=== PATIENT | female | born 1945 | race Caucasian/White ===

== ENCOUNTER 2019-01-09 09:14 | Emergency (ER) | payer MEDICARE, OTHER, SELFPAY ==
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
[2019-01-09 09:28] VITALS: BP 132/82; PULSE 68; RESP 20; TEMP 36.1; O2SAT 100
[2019-01-09 10:15] LABS: Basophils Percent Auto 0.7 % (0.2-1.2); Eosinophils Absolute Auto 0.1 K/mm3 (0-0.3); Eosinophils Percent Auto 2.1 % (0-4.4); Hematocrit 40.6 % (37.0-47.0); Immature Granulocyte Absolute 0.03 K/mm3 (0.00-0.031); Immature Granulocyte Percent A 0.5 % (0-0.5); Lymphocytes Absolute Auto 1.45 K/mm3 (0.9-3.2); Lymphocytes Percent Auto 23.8 % (18.3-44.2); Mean Corpuscular Hemoglobin 32.3 pg (26-34); Mean Corpuscular Volume 100.7 fl (80-100); Mean Platelet Volume 9.6 fl (7.4-10.4); Monocytes Absolute Auto 0.6 K/mm3 (0.1-0.6); Monocytes Percent Auto 10.2 % (2.6-8.5); Neutrophils Absolute Auto 3.8 K/mm3 (1.3-6.7); Neutrophils Percent Auto 62.7 % (45.5-73.1); Platelet Count Result 292 k/mm3 (150-375); Red Blood Count 4.03 M/mm3 (4.2-5.4); Red Cell Distribution Width 12.2 % (11.5-14.5); White Blood Count 6.1 K/mm3 (4.5-10.0)
[2019-01-09 10:28] LABS: Alanine Aminotransferase 21 U/L (4-35); Albumin Level 3.8 g/dL (3.5-5.1); Alkaline Phosphatase 96 U/L (38-126); Aspartate Amino Transferase 35 U/L (14-36); Bilirubin,Total 0.8 mg/dL (0.2-1.3); Blood Urea Nitrogen 16 mg/dL (7-17); Calcium 8.6 mg/dL (8.4-10.2); Carbon Dioxide 29 mmol/L (22-30); Chloride 105 mmol/L (98-107); Estimated CRCL calculation 53 ml/min; Estimated Glomerular Filt Rate > 60; Glucose 93 mg/dL (65-105); Potassium 4.1 mmol/L (3.4-5.0); Sodium 141 mmol/L (137-145)
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
[2019-01-09 11:38] LABS: Add Urine Microscopic? NO; Appearance Urine Clear (Clear); Bilirubin Urine Negative (Negative); Blood Urine Negative (Negative); Color Urine Yellow (Yellow); Glucose Urine UA Negative (Negative); Ketones Urine Negative (Negative); Leukocyte Esterase Ur Negative LEU/UL (Negative); Nitrate Urine Negative (Negative); Protein Urine Negative (Negative); Specific Grav Ur 1.011 (1.001-1.035); Urobilinogen Urine Negative mg/dL (<2.0)
[2019-01-09 12:15] VITALS: BP 145/81; PULSE 82; RESP 16; O2SAT 96
== END 2019-01-09 12:15 | disposition home or self-care (01) ==
PROVIDERS: Physician Assistant; Emergency Provider Emergency Medicine; PCP Family Medicine
DX: S30.1XXA Contusion of abdominal wall, initial encounter (principal); V43.52XA Car driver injured in collision with other type car in traffic accident, initial encounter
CPT/HCPCS: 36415; 51701; 74176; 80053; 81003; 85025; 99284

== ENCOUNTER → 2020-03-31 01:26 | Outpatient (CLI) | payer MEDICARE, OTHER, SELFPAY ==
[2020-03-31 19:35] LABS: SARS-CoV-2 RNA PCR Negative
== END ==
PROVIDERS: Family Provider Family Medicine; PCP Family Medicine; Visit Provider Plastic Surgery
DX: Z01.812 Encounter for preprocedural laboratory examination (principal); Z20.822 Contact with and (suspected) exposure to COVID-19
CPT/HCPCS: C9803; U0003; U0005

== ENCOUNTER 2020-04-03 00:32 | Day surgery (SDC) | payer MEDICARE, OTHER, SELFPAY ==
[2020-03-26 14:40] VITALS: BMI 22.1
[2020-04-03] VITALS (9 sets, daily range): BP systolic 94–126; BP diastolic 45–84; PULSE 60–80; RESP 16–20; TEMP 37.2; O2SAT 95–99
--- NOTE | 2020-04-03 07:13 | WPDHPUPDATE1 ---
History and Physical Update Update Date/Time: 04/03/20 07:13 History and Physical has been reviewed, including an updated exam of the patient. There are NO changes in the patient's condition. Risks, benefits, and alternatives have been discussed and questions answered. Patient agrees to proceed with procedure.
--- NOTE | 2020-04-03 12:48 | SUR.PREOP ---
1225-DR. MOREIRA IN TO SPEAK WITH PT AND DAUGHTER, WILL PROCEED WITH SURGERY, PT MARKED. SPLINT/WRAP TO RIGHT LOWER LEG/HEEL.
[2020-04-03] MEDS: LIDO 1%/EPINEPHRINE 1:100,000 50 ML VIAL INFILTRATE (13:24)
[2020-04-03] MEDS: BACITRACIN OINTMENT 15 GM TUBE 1 APPLIC TOPICAL (13:25)
--- NOTE | 2020-04-03 14:27 | PM.OP ---
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
--- NOTE | 2020-04-03 14:30 | P.OP_ITS ---
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 This patient had earlier been in the em ergency room having fallen at home. She had taken a fall at home and has sustained an nondisplaced fracture of the calcaneus and a single rib fracture, but was doing quite well when I examined her in the emergency room prior to her discharge there. She elected to go ahead with her surgery today. She is with her daughter. The patient was taken to the operating room and placed supine on the operating table. Her procedures being done under local anesthetic. She was quite comfortable throughout. The right leg and thigh were prepped and draped in the usual fashion. The lesion was marked for excision and locally infiltrated with 1% lidocaine with epinephrine. Asite of similar diameter was marked on her right thigh and also infiltrated with 1% lidocaine with epi epinephrine. The excision was carried out into the subcutaneous tissue and the specimen was sent for permanent sections. The full-thickness graft was harvested from the right thigh and carefully defatted. It was inset with a running 5 0 nylon. There were a few pie crusting incisions made in it for drainage. The graft was dressed with Mepilex Silver gauze and an Keon wrap. Her posterior ankle support from the ER was reapplied. The donor site was debrided of excess tissue and undermined a cm in all directions. This wound was closed with intradermal 0 Vicryl suture and glue. She was discharged from the operating room in stable condition. A prescription for hydrocodone had already been called in for her from the ER. A prescription for Bactrim DS was cold and for the purpose of preserving the skin graft. Anesthesia: local Surgeon: Matti Cam MD Estimated blood loss (mL): 1 Drains: No Packing: No Pathology: yes (for permanent sections.) Complications: No immediate complications Condition: stable Disposition: same day
== END 2020-04-03 15:20 | disposition home or self-care (01) ==
PROVIDERS: Family Provider Family Medicine; PCP Family Medicine; Visit Provider Plastic Surgery
PROC: (CPT 11403; principal; 2020-04-03 13:00)
DX: L57.0 Actinic keratosis (principal); Z79.82 Long term (current) use of aspirin; Z95.0 Presence of cardiac pacemaker
CPT/HCPCS: 11403; 15220; 29515; 71046; 71100; 73630; 73650; 88305; 88307; 99284; A9270

== ENCOUNTER 2020-04-03 08:29 | Emergency (ER) | payer MEDICARE, OTHER, SELFPAY ==
--- NOTE | ~2020-04-03 | XR_ITS ---
EXAMINATION: XR foot RT min 3V, XR heel RT min 2V DATE: 04/03/2020 09:26 INDICATION: Hematoma at the right foot post fall onto concrete floor. TECHNIQUE: 1. Dorsoplantar, two oblique and lateral views of the right foot were obtained. 2. Axial and lateral views of the right calcaneus were obtained. COMPARISON: None. FINDINGS: There is a nondisplaced tongue configuration fracture of the calcaneus with fracture line extending f rom the posterior tuberosity near the Achilles tendon footplate anteriorly and superiorly to the post erior margin of the posterior facet of the subtalar joint. No definitive intra-articular extension. N ondisplaced coronally oriented fracture of the posterior talus which appears to extend to the articul ar surface at the junction of the posterior to mid thirds of the talar dome and inferior to involve t he posterior aspect of the posterior facet of the subtalar joint. No significant fracture gap or inco ngruity at either articular surface. Minimally distracted small avulsion fracture fragment at the dorsal lateral aspect of the anterior pr ocess of the calcaneus involving the footplate of the bifurcate ligament. There is also a minimally d isplaced likely mildly comminuted fracture involving the lateral aspect of the cuboid which may invol ve minimal portions of the articular surfaces at the calcaneocuboid and potentially fifth tarsal meta tarsal joints. Mild osteoarthritis at the first metatarsophalangeal and several tarsal metatarsal and interphalangeal joints. IMPRESSION: 1. Non to minimally displaced fractures of the right talus, calcaneus, and cuboid as detailed above. Reviewed, dictated and finalized at location A. OYMENT COACH IMPRESSION: 1. Non to minimally displaced fractures of the right talus, calcaneus, and cubo id as detailed above.
--- NOTE | ~2020-04-03 | XR_ITS ---
EXAMINATION: XR ribs LT 2V w CXR 2V INDICATION: Chest pain after fall TECHNIQUE: Frontal and lateral views of the chest and 3 views of the left ribs were obtained. COMPARISON: None. FINDINGS: There appears to be a nondisplaced fracture of the left ninth rib. The lungs are free of ac alicia opacities. There is no pleural effusion or pneumothorax. The cardiomediastinal silhouette is norm al. A dual-lead cardiac pacemaker of the left chest wall ends with leads in expected locations. There is severe mid thoracic spondylosis. IMPRESSION: 1. Likely nondisplaced left ninth rib fracture. 2. No acute cardiopulmonary abnormality. Reviewed, dictated and finalized at location A. CIENCE PROFESSOR
[2020-04-03 08:35] VITALS: BP 161/91; PULSE 64; RESP 17; TEMP 36.7; O2SAT 97
--- NOTE | 2020-04-03 08:48 | ED.FALL ---
HPI - Fall General Chief Complaint: Fall Stated Complaint: fell down steps - ankle and rib pain Time Seen by Provider: 04/03/20 08:31 Source: patient Mode of arrival: ambulatory Limitations: no limitations History of Present Illness HPI Narrative: A 74-year-old female presents to the emergency department today with complaints of a slip and fall at home. Patient states that she was walking down some stairs, accidentally missed a stair and fell. Patient is complaining of pain in her right foot and left ribs. Patient notes that she fell backwards onto her left side and twisted her right foot in the process. She denies any numbness or tingling. Patient denies any difficulties with breathing. She also states that she does not take any blood thinners. Patient denies hitting her head or any loss of consciousness. Related Data Allergies Allergy/AdvReac Type Severity Reaction Status Date / Time Penicillins Allergy Unknown UNKNOWN Verified 04/03/20 08:40 Review of Systems Review of Systems: Narrative: CONSTITUTIONAL: Denies fever, chills, or sweats. EYES: Denies visual changes, redness, or discharge. ENT: Denies rhinorrhea, congestion, sore throat, or otalgia. CARDIOVASCULAR: Denies chest pain, palpitations, or edema. Endorses pain in the left lateral ribs RESPIRATORY: Denies cough or dyspnea. GASTROINTESTINAL: Denies abdominal pain, nausea, vomiting, or diarrhea. GENITOURINARY: Denies dysuria or hematuria. SKIN: Denies rash or itching. MUSCULOSKELETAL: Denies back pain, joint pain, or myalgia. Endorses pain in the right foot NEUROLOGIC: Denies headache, numbness, dizziness, or weakness. PSYCHIATRIC: Denies anxiety or depression. [facility] Past Medical History Medical History Dementia Depression Polyuria Skin lesion of right leg Surgical History Surgical History History of dilation and curettage Hx of tubal ligation Family History Family History Other Family history of coronary artery disease Social History Social History Social History: Mrs. Hoffmann is and lives with her in [place]. She designates her , Morgan, as her surrogate decision maker and she wishes to be a full code. She denies alcohol, tobacco, and drug use. Her primary care provider is Dr. Chapito Bridges. Smoking status: Never smoker Substance use type: does not use Gender identity (if verbalized by the patient): Female Exam Narrative: Exam Narrative: GENERAL: Well-appearing, well-nourished, and in no acute distress. HEAD: Normocephalic, atraumatic. EYES: PERRLA and EOMI. ENT: Nares clear, no rhinorrhea or epistaxis. Mucous membranes moist. NECK: Supple. No adenopathy or masses. No carotid bruits or JVD CHEST: Clear to auscultation. No respiratory distress. No wheezes rales or rhonchi tenderness palpation in the left lateral ribs HEART: Regular rate and rhythm. No murmur heard. Normal peripheral pulses. ABDOMEN: Soft, nontender, nondistended, normal active bowel sounds. EXTREMITIES: Normal range of motion. No edema. Limited range of motion and tenderness to palpation in the right foot secondary to pain SKIN: Warm, dry, no rash. NEURO: No focal deficits. Alert and oriented x3. PSYCH: Normal mood and affect. Course Reevaluation(s) Reevaluation #1: Patient resting comfortably, she is currently having her splint placed by ED staff. Informed patient of plan to discharge. She is in agreement with this. Time: 10:39 Consultations Consultation #1: Spoke with Dr. Pablo, orthopedics, full details of the patient's presentation and work-up were discussed. He is in agreement with plan as laid out. He will follow up with the patient in his office. Time: 10:59 Vital Signs Vital signs: Vital Signs Temperature 36.7 C
[2020-04-03] MEDS: oxyCODONE/ACETAMINOPHEN (*CRX) 5-325 MG TABLET 1 TABLET PO (09:32)
[2020-04-03 10:49] VITALS: BP 150/85; PULSE 85; RESP 18; O2SAT 100
[2020-04-03 11:40] VITALS: BP 129/75; PULSE 60; RESP 18; O2SAT 95
== END 2020-04-03 11:42 | disposition home or self-care (01) ==
PROVIDERS: Emergency Provider Emergency Medicine; PCP Family Medicine
DX: S22.32XA Fracture of one rib, left side, initial encounter for closed fracture (principal); S92.014A Nondisplaced fracture of body of right calcaneus, initial encounter for closed fracture; F03.90 Unspecified dementia, unspecified severity, without behavioral disturbance, psychotic disturbance, mood disturbance, and anxiety; F32.9 Major depressive disorder, single episode, unspecified; W10.9XXA Fall (on) (from) unspecified stairs and steps, initial encounter
CPT/HCPCS: 29515; 71046; 71100; 73630; 73650; 99284; A9270

== ENCOUNTER 2021-07-23 07:59 | Outpatient (CLI) | payer MEDICARE, OTHER, SELFPAY ==
[2021-07-23 18:47] LABS: Appearance Urine Clear (Clear); Bilirubin Urine Negative (Negative); Glucose Urine UA Negative (Negative); Ketones Urine Negative (Negative); Leukocyte Esterase Ur Negative LEU/UL (NEGATIVE); Nitrate Urine Negative (Negative); Protein Urine Negative (Negative); Urobilinogen Urine 0.2 mg/dL (<2.0); pH Urine 6.5 (5.0-9.0)
[2021-07-23 18:49] LABS: Add Urine Microscopic? YES; Blood Urine Trace-Intact (Negative); Color Urine Light Yellow (Yellow)
[2021-07-23 18:56] LABS: RBC Urine 0-2 /hpf (0-2); WBC Urine 0-3 /hpf (0-3)
== END 2021-07-23 08:00 | disposition home or self-care (01) ==
PROVIDERS: PCP Family Medicine; Visit Provider Family Medicine
DX: R30.0 Dysuria (principal)
CPT/HCPCS: 81001; 87086

== ENCOUNTER 2022-05-24 16:08 | Emergency (ER) | payer MEDICARE, OTHER, SELFPAY ==
[2022-05-24 16:09] VITALS: BP 135/74; PULSE 107; RESP 16; TEMP 36.1; O2SAT 97
--- NOTE | 2022-05-24 16:39 | ECG_ITS ---
Measurements Intervals [place] Rate: 77 P: 16 WY: 132 QRS: 6 QRSD: 94 T: 13 QT: 424 QTc: 481 Interpretive Statements SINUS RHYTHM WITH OCCASIONAL SUPRAVENTRICULAR PREMATURE COMPLEXES POSSIBLE RIGHT VENTRICULAR CONDUCTION DELAY BORDERLINE ECG COMPARED TO ECG 01/01/2019 16:16:49 NO SIGNIFICANT CHANGES Electronically Signed On 05-25-2022 15:59:18 CDT by Krishan Yates M.D.
[2022-05-24 19:01] LABS: Basophils Absolute Auto 0.1 K/mm3 (0.0-0.1); Basophils Percent Auto 0.7 % (0.2-1.2); Eosinophils Absolute Auto 0.2 K/mm3 (0-0.3); Eosinophils Percent Auto 3.2 % (0-4.4); Hematocrit 38.8 % (37.0-47.0); Hemoglobin 12.6 g/dL (12.0-15.0); Immature Granulocyte Absolute 0.04 K/mm3 (0.00-0.031); Immature Granulocyte Percent A 0.6 % (0-0.5); Lymphocytes Absolute Auto 1.92 K/mm3 (0.9-3.2); Lymphocytes Percent Auto 27.6 % (18.3-44.2); Mean Corpuscular HGB Conc 32.5 g/dl (32-36); Mean Corpuscular Hemoglobin 32.6 pg (26-34); Mean Corpuscular Volume 100.3 fl (80-100); Monocytes Absolute Auto 0.8 K/mm3 (0.1-0.6); Monocytes Percent Auto 11.1 % (2.6-8.5); Neutrophils Percent Auto 56.8 % (45.5-73.1); Platelet Count Result 226 k/mm3 (150-375); Red Blood Count 3.87 M/mm3 (4.2-5.4)
[2022-05-24 19:17] LABS: Alanine Aminotransferase 18 U/L (6-35); Albumin Level 3.8 g/dL (3.5-5.1); Alkaline Phosphatase 73 U/L (38-126); Anion Gap 6 mmol/L (8-16); Aspartate Amino Transferase 30 U/L (14-36); Bilirubin,Total 0.5 mg/dL (0.2-1.3); Blood Urea Nitrogen 15 mg/dL (7-17); Calcium 8.6 mg/dL (8.4-10.2); Carbon Dioxide 27 mmol/L (22-30); Chloride 103 mmol/L (98-107); Estimated Glomerular Filt Rate > 60; Glucose 83 mg/dL (65-110); Potassium 3.4 mmol/L (3.4-5.0); Sodium 136 mmol/L (137-145)
--- NOTE | 2022-05-24 19:37 | ED.FALL ---
HPI - Fall General Chief Complaint: Fall Stated Complaint: Syncopal episode Time Seen by Provider: 05/24/22 19:28 History of Present Illness HPI Narrative: Her who witnessed the episode, they were walking back from the patio after she had just woken up from a nap, and she had stumbled and he caught her so she landed on her bottom, didn't hit her head, but he had trouble getting her off the floor. Called daughter to help, they called their doctor who recommended they be seen/evaluated in ER. Currently being seen by her primary care doctor due to diagnosis of likely dementia, she has been having shuffling steps and memory issues worsening over the last 2 years. Currently at baseline per family. Patient denies any complaints. No recent illnesses. Related Data Home Medications Medication Instructions Recorded Confirmed aspirin 81 mg capsule 81 mg PO DAILY 12/04/21 12/04/21 Allergies Allergy/AdvReac Type Severity Reaction Status Date / Time Penicillins Allergy Unknown UNKNOWN Verified 12/04/21 09:37 Review of Systems Review of Systems: CONST: No fever. HEENT: No sore throat C/V: No chest pain RESP: No cough GI: No abdominal pain, nausea, vomiting : No dysuria. M/S: No joint pain. SKIN: No rash. NEURO: [No focal numbness or weakness] PSYCH: [No depression] PMFSH Past Medical History Medical History A-fib Body mass index (BMI) 21 to less than 23 Dementia Depression Dysuria Essential hypertension Fracture of right talus Insomnia Pacemaker Polyuria Skin cancer Skin lesion of right leg SOB (shortness of breath) Wears glasses Surgical History Surgical History History of dilation and curettage History of permanent cardiac pacemaker placement 2019 Hx of tubal ligation Family History Family History Other Arthritis Carcinoma of colon Cerebrovascular accident Family history of coronary artery disease Heart disease Social History Social History Social History: Mrs. Hoffmann is and lives with her in [place]. She designates her , Morgan, as her surrogate decision maker and she wishes to be a full code. She denies alcohol, tobacco, and drug use. Her primary care provider is Dr. Chapito Bridges. Smoking status: Never smoker Alcohol intake: never Substance use type: does not use Living arrangements: with family Gender identity (if verbalized by the patient): Female Exam Narrative: EXAMINATION OF ORGAN SYSTEMS/BODY AREAS: Constitutional: Vital signs per nursing GENERAL:[No acute distress, non-toxic appearing.] HEAD: Normal with no signs of head trauma. EYES: EOMI, conjunctiva normal ENT: Hearing grossly intact LUNGS: Nonlabored breathing. HEART: [Regular rate and rhythm] ABD: [Soft], non[tender to palpation] EXT: Normal range of motion, no tenderness to palpation anywhere or deformity SKIN: [No rashes or lesions.] NEURO: [Alert and oriented x 2. No gross focal sensory or strength deficits.] Ambulating with narrow shuffling steps PSYCH: Normal affect Course Vital Signs Vital signs: Vital Signs Temperature 97.0 F L 05/24/22 16:09 Pulse Rate 107 H 05/24/22 16:09 Respiratory Rate 16 05/24/22 16:09 Blood Pressure 135/74 05/24/22 16:09 Pulse Oximetry 97 05/24/22 16:09 Oxygen Delivery Room Air 05/24/22 16:09 Temperature 97.0 F L 05/24/22 16:09 Pulse Rate 107 H 05/24/22 16:09 Respiratory Rate 16 05/24/22 16:09 Blood Pressure 135/74 05/24/22 16:09 Pulse Oximetry 97 05/24/22 16:09 Oxygen Delivery Room Air 05/24/22 16:09 MDM - Fall MDM Narrative Medical decision making narrative: 76-year-old female with history of dementia presenting after possible ground-level fall that was witnessed, caught be
== END 2022-05-24 20:50 | disposition home or self-care (01) ==
LOC: ANHED 19:40
PROVIDERS: Emergency Medicine; Emergency Provider Emergency Medicine; PCP Family Medicine
DX: F03.90 Unspecified dementia, unspecified severity, without behavioral disturbance, psychotic disturbance, mood disturbance, and anxiety (principal); I48.91 Unspecified atrial fibrillation; F32.A Depression, unspecified; I10 Essential (primary) hypertension; W01.0XXA Fall on same level from slipping, tripping and stumbling without subsequent striking against object, initial encounter
CPT/HCPCS: 36415; 80053; 85025; 93005; 99283

== ENCOUNTER 2023-01-17 17:36 | Inpatient (IN) | payer MEDICARE, OTHER, SELFPAY ==
--- NOTE | ~2023-01-17 | XR_ITS ---
Portable chest x-ray Comparison: 04/03/2020 Clinical History: Cough Findings: Lungs are clear, without focal consolidation or pleural effusion. Cardiomediastinal silho uette is stable, with pacemaker device. Bones and soft tissues are unremarkable. Impression: Clear lungs. Reviewed, dictated and finalized at location . [employer] Impression: Clear lungs.
[2023-01-17 18:42] VITALS: BP 90/60; PULSE 62; RESP 16; TEMP 36.4; O2SAT 99
[2023-01-17 21:53] VITALS: BP 119/86; PULSE 62; RESP 16; O2SAT 100
[2023-01-18] VITALS (8 sets, daily range): BP systolic 102–129; BP diastolic 62–91; PULSE 62–76; RESP 14–20; TEMP 36–38.1; O2SAT 94–100
--- NOTE | 2023-01-18 00:02 | ED.URI ---
HPI - URI/Sore Throat General Chief Complaint: Upper Respiratory Infection Stated Complaint: cough/uti Time Seen by Provider: 01/17/23 23:47 History of Present Illness HPI Narrative: patient is 77-year-old female presenting with UTI. Patient's daughters at bedside and helps with the history as the patient has dementia. She has recurrent UTIs and they received a call today that her last urine culture grew an organism that is resistant to oral antibiotics. They were advised to bring her in for IV antibiotics. Patient has also been having a cough and chest congestion. Patient's daughter states she had 1 episode of emesis. No diarrhea. Patient denies any pain. No leg swelling. Patient has been on Bactrim for the last week. Related Data Home Medications Medication Instructions Recorded Confirmed aspirin 81 mg capsule 81 mg PO DAILY 12/04/21 01/18/23 donepezil 10 mg tablet 10 mg PO QPM 01/18/23 01/18/23 memantine 10 mg tablet 10 mg PO BID 01/18/23 01/18/23 Allergies Allergy/AdvReac Type Severity Reaction Status Date / Time Penicillins Allergy Unknown UNKNOWN Verified 01/17/23 17:37 Review of Systems Review of Systems: All systems reviewed & are unremarkable except as noted in HPI and below PMFSH Past Medical History Medical History (Updated 01/25/23 @ 20:49 by Clarisa Cabrera MD) A-fib Body mass index (BMI) 21 to less than 23 Dementia Depression Dysuria Essential hypertension Fracture of right talus Insomnia Pacemaker Polyuria Sacral decubitus ulcer Skin cancer Skin lesion of right leg SOB (shortness of breath) Wears glasses Surgical History Surgical History History of dilation and curettage History of permanent cardiac pacemaker placement 2019 Hx of tubal ligation Family History Family History Other Arthritis Carcinoma of colon Cerebrovascular accident Family history of coronary artery disease Heart disease Social History Social History Social History: Mrs. Hoffmann is and lives with her in [place]. She designates her , Morgan, as her surrogate decision maker and she wishes to be a full code. She denies alcohol, tobacco, and drug use. Her primary care provider is Dr. Chapito Bridges. Smoking status: Never smoker Second hand tobacco smoke exposure: Yes Alcohol intake: never Substance use: never Substance use type: does not use Lack of Transportation: No Lack of Food: Never True Current Housing: I Have Housing Concerned About Future Housing: No Difficulty Paying Gas/Electric Bills: No Difficulty Paying for Meds: No Currently Unemployed: No Education: High School Diploma/GED Difficulty w/ Childcare or Family Care: No Living arrangements: with family Gender identity (if verbalized by the patient): Female Spiritual care concerns: No Exam Narrative: GENERAL: Nontoxic, no acute distress, pleasant cooperative HEAD: Normocephalic, atraumatic. EYES: PERRLA and EOMI. ENT: grossly unremarkable NECK: Supple. CHEST: Clear to auscultation. No respiratory distress. HEART: Regular rate and rhythm. ABDOMEN: Soft, nontender, nondistended EXTREMITIES: Normal range of motion. SKIN: Warm, dry, no rash. NEURO: at baseline PSYCH: Normal mood and affect. Course Vital Signs Vital signs: Vital Signs Temperature 97.6 F 01/17/23 18:42 Pulse Rate 62 01/17/23 18:42 Respiratory Rate 16 01/17/23 18:42 Blood Pressure 90/60 L 01/17/23 18:42 Pulse Oximetry 99 01/17/23 18:42 Oxygen Delivery Room Air 01/17/23 18:42 Temperature 97.9 F 01/24/23 14:00 Pulse Rate 103 H 01/24/23 14:00 Respiratory Rate 16 01/24/23 14:00 Blood Pressure 120/68 01/24/23 14:00 Pulse Oximetry 99 01/24/23 14:00 Oxygen Delivery Room Air
[2023-01-18] MEDS: SODIUM CHLORIDE 0.9% IV 1,000 ML 999 ML IV CONT (00:14)
[2023-01-18 00:53] LABS: Basophils Percent Auto 0.3 % (0.2-1.2); Eosinophils Percent Auto 0.2 % (0-4.4); Hematocrit 39.2 % (37.0-47.0); Hemoglobin 12.5 g/dL (12.0-15.0); Immature Granulocyte Absolute 0.06 K/mm3 (0.00-0.031); Immature Granulocyte Percent A 0.6 % (0-0.5); Lymphocytes Absolute Auto 1.02 K/mm3 (0.9-3.2); Lymphocytes Percent Auto 10.9 % (18.3-44.2); Mean Corpuscular HGB Conc 31.9 g/dl (32-36); Mean Corpuscular Hemoglobin 31.3 pg (26-34); Mean Corpuscular Volume 98.2 fl (80-100); Monocytes Absolute Auto 0.5 K/mm3 (0.1-0.6); Monocytes Percent Auto 5.4 % (2.6-8.5); Neutrophils Absolute Auto 7.7 K/mm3 (1.3-6.7); Neutrophils Percent Auto 82.6 % (45.5-73.1); Platelet Count Result 231 k/mm3 (150-375); Red Blood Count 3.99 M/mm3 (4.2-5.4); Red Cell Distribution Width 13.1 % (11.5-14.5); White Blood Count 9.3 K/mm3 (4.5-10.0)
[2023-01-18 00:56] LABS: Influenza A QL RT-PCR Negative (Negative); Influenza B QL RT-PCR Negative (Negative); RSV RNA, RT-PCR Negative (Negative); SARS-CoV-2 RNA PCR Positive (Negative)
[2023-01-18 01:03] LABS: Lactic Acid Reflex 1.4 mmol/L (0.7-2.0)
[2023-01-18 01:04] LABS: Alanine Aminotransferase 16 U/L (6-35); Albumin Level 3.5 g/dL (3.5-5.1); Alkaline Phosphatase 83 U/L (38-126); Anion Gap 11 mmol/L (8-16); Aspartate Amino Transferase 26 U/L (14-36); Bilirubin,Total 0.4 mg/dL (0.2-1.3); Blood Urea Nitrogen 23 mg/dL (7-17); Calcium 8.6 mg/dL (8.4-10.2); Carbon Dioxide 23 mmol/L (22-30); Chloride 104 mmol/L (98-107); Estimated CRCL calculation 34 ml/min; Estimated Glomerular Filt Rate 48; Glucose 134 mg/dL (65-110); Lipase 94 U/L (23-300); Potassium 4.1 mmol/L (3.4-5.0); Sodium 138 mmol/L (137-145)
[2023-01-18 01:07] LABS: Appearance Urine Clear (Clear); Bacteria Urine 4+ /hpf; Bilirubin Urine Negative (Negative); Blood Urine Negative (Negative); Color Urine Yellow (Yellow); Glucose Urine UA Negative (Negative); Ketones Urine Negative (Negative); Leukocyte Esterase Ur Trace LEU/UL (Negative); Need Manual Microscopic Reviewed; Nitrate Urine Positive (Negative); Non Pathogenic Casts 0-2; Protein Urine Negative (Negative); RBC Urine 0-2 /hpf (0-2); Specific Grav Ur 1.016 (1.001-1.035); Squamous Epithelial Cell Urine None seen /hpf (Few); Urobilinogen Urine 0.2 mg/dL (<2.0); WBC Urine 0-5 /hpf
[2023-01-18 01:08] LABS: Add Urine Microscopic? YES
[2023-01-18] MEDS: SODIUM CHLORIDE 0.9% IV 1,000 ML 100 ML IV CONT ×2 (02:32→09:14)
--- NOTE | 2023-01-18 08:41 | PM.IMHP ---
H&P: HPI History of Present Illness Date/Time: 01/18/23 08:41 Chief Complaint: Abnormal lab Narrative: patient is 77-year-old female presenting with UTI.? Patient herself is demented and not able to provide any history. She has recurrent UTIs and they received a call with that that her last urine culture grew an organism that is resistant to oral antibiotics.? They were advised to bring her in for IV antibiotics.? Patient has also been having a cough and chest congestion.? Patient's daughter states she had 1 episode of emesis.? No diarrhea.? Patient denies any pain.? No leg swelling.? Patient has been on Bactrim for the last week. Review of Systems Review of Systems: ROS unobtainable: Yes unobtainable due to mental status PMFSH Past Medical History Medical History A-fib Body mass index (BMI) 21 to less than 23 Dementia Depression Dysuria Essential hypertension Fracture of right talus Insomnia Pacemaker Polyuria Sacral decubitus ulcer Skin cancer Skin lesion of right leg SOB (shortness of breath) Wears glasses Surgical History Surgical History History of dilation and curettage History of permanent cardiac pacemaker placement 2019 Hx of tubal ligation Family History Family History Other Arthritis Carcinoma of colon Cerebrovascular accident Family history of coronary artery disease Heart disease Social History Social History Social History: Mrs. Hoffmann is and lives with her in [place]. She designates her , Morgan, as her surrogate decision maker and she wishes to be a full code. She denies alcohol, tobacco, and drug use. Her primary care provider is Dr. Chapito Bridges. Smoking status: Never smoker Second hand tobacco smoke exposure: Yes Alcohol intake: never Substance use: never Substance use type: does not use Lack of Transportation: No Lack of Food: Never True Current Housing: I Have Housing Concerned About Future Housing: No Difficulty Paying Gas/Electric Bills: No Difficulty Paying for Meds: No Currently Unemployed: No Education: High School Diploma/GED Difficulty w/ Childcare or Family Care: No Living arrangements: with family Gender identity (if verbalized by the patient): Female Spiritual care concerns: No Meds Home Medications and Allergies Home Medications Medication Instructions Recorded Confirmed Type aspirin 81 mg capsule 81 mg PO DAILY 12/04/21 01/18/23 History zaleplon 5 mg capsule 5 mg PO QHS PRN sleep #30 caps 12/04/21 01/18/23 Rx fluticasone propionate 50 1 inh inhalation Q12H #60 ea 05/16/22 01/18/23 Rx mcg/actuation blister powder for inhalation (Flovent Diskus) sertraline 100 mg tablet 150 mg PO DAILY #135 tabs 06/01/22 01/18/23 Rx alendronate 70 mg tablet (Fosamax) 70 mg PO WEEKLY #12 tabs 12/08/22 01/18/23 Rx collagen (bovine) 100 % topical 1 applic topical DAILY #10 grams 12/31/22 01/18/23 Rx powder donepezil 10 mg tablet 10 mg PO QPM 01/18/23 01/18/23 History memantine 10 mg tablet 10 mg PO BID 01/18/23 01/18/23 History Allergies Allergy/AdvReac Type Severity Reaction Status Date / Time Penicillins Allergy Unknown UNKNOWN Verified 01/17/23 17:37 Vital Signs Vital Signs - 24 hr 01/17/23 18:42 01/17/23 21:53 01/18/23 00:00 Temperature 97.6 F Pulse Rate 62 62 69 Respiratory Rate 16 16 14 Blood Pressure 90/60 L 119/86 129/62 Pulse Oximetry 99 100 100 Oxygen Delivery Room Air 01/18/23 01:32 01/18/23 03:35 01/18/23 05:29 Temperature 100.6 F H Pulse Rate 66 72 68 Respiratory Rate 20 14 18 Blood Pressure 102/64 124/63 116/62 Pulse Oximetry 98 100 100 Oxygen Delivery Exam Narrative: GENERAL: ? Nontoxic, no acute distress, pleasa
--- NOTE | 2023-01-18 09:25 | ADMGEN ---
Addendum entered by Karly Delaney RN 01/18/23 09:27: pt arrived onto the floor at 0900 Original Note: This patient, Lizeth Hoffmann, was admitted to [facility] Room 324-02. Patient/family oriented to hospital policies and general routines including ID bracelet, bed and alarms, visiting hours, pain management, procedures, bathroom and other care routines, personal items, smoking policy, room service/diet, and visiting hours. Information on how to activate the Rapid Response Team has been discussed. Patient/Family are encouraged to report perceived risks to care and to ask questions if they do not understand what they are told or what they should do. Report from ashley in er
[2023-01-18] MEDS: ERTAPENEM 1 GM/NS 50 ML 1 GM/50 ML BAG IVPB (10:23)
[2023-01-18] MEDS: ASPIRIN 81 MG ENTERIC TABLET PO (10:24)
[2023-01-18] MEDS: MEMANTINE 10 MG TABLET PO (16:59)
[2023-01-18] MEDS: DONEPEZIL HCL 10 MG TABLET PO (16:59)
[2023-01-19] MEDS: SODIUM CHLORIDE 0.9% IV 1,000 ML 50 ML IV CONT ×2 (01:09→21:14)
[2023-01-19 06:00] VITALS: BP 158/72; PULSE 72; RESP 16; TEMP 36.2; O2SAT 98
[2023-01-19 06:43] LABS: Basophils Percent Auto 0.3 % (0.2-1.2); Eosinophils Absolute Auto 0.1 K/mm3 (0-0.3); Eosinophils Percent Auto 1.5 % (0-4.4); Hematocrit 36.2 % (37.0-47.0); Hemoglobin 11.7 g/dL (12.0-15.0); Immature Granulocyte Absolute 0.03 K/mm3 (0.00-0.031); Immature Granulocyte Percent A 0.5 % (0-0.5); Lymphocytes Absolute Auto 1.16 K/mm3 (0.9-3.2); Lymphocytes Percent Auto 19.2 % (18.3-44.2); Mean Corpuscular HGB Conc 32.3 g/dl (32-36); Mean Corpuscular Hemoglobin 31.5 pg (26-34); Mean Corpuscular Volume 97.6 fl (80-100); Mean Platelet Volume 10.1 fl (7.4-10.4); Monocytes Absolute Auto 0.5 K/mm3 (0.1-0.6); Monocytes Percent Auto 8.3 % (2.6-8.5); Neutrophils Absolute Auto 4.2 K/mm3 (1.3-6.7); Neutrophils Percent Auto 70.2 % (45.5-73.1); Platelet Count Result 191 k/mm3 (150-375); Red Blood Count 3.71 M/mm3 (4.2-5.4); Red Cell Distribution Width 12.8 % (11.5-14.5)
[2023-01-19 06:55] LABS: Alanine Aminotransferase 14 U/L (6-35); Alkaline Phosphatase 76 U/L (38-126); Anion Gap 8 mmol/L (8-16); Aspartate Amino Transferase 29 U/L (14-36); Bilirubin,Total 0.6 mg/dL (0.2-1.3); Blood Urea Nitrogen 7 mg/dL (7-17); Calcium 8.1 mg/dL (8.4-10.2); Carbon Dioxide 24 mmol/L (22-30); Chloride 107 mmol/L (98-107); Estimated CRCL calculation 60 ml/min; Estimated Glomerular Filt Rate > 60; Glucose 85 mg/dL (65-110); Magnesium 1.9 mg/dL (1.6-2.3); Potassium 3.6 mmol/L (3.4-5.0); Sodium 139 mmol/L (137-145)
[2023-01-19 08:00] VITALS: PULSE 64; RESP 16; O2SAT 97
[2023-01-19] MEDS: SERTRALINE HCL 50 MG TABLET 150 MG PO (08:24)
[2023-01-19] MEDS: ERTAPENEM 1 GM/NS 50 ML 1 GM/50 ML BAG IVPB (08:24)
[2023-01-19] MEDS: MEMANTINE 10 MG TABLET PO ×2 (08:24→17:36)
[2023-01-19] MEDS: ASPIRIN 81 MG ENTERIC TABLET PO (08:24)
[2023-01-19] MEDS: ENOXAPARIN 40 MG/0.4 ML SYRINGE SUB-Q (08:25)
[2023-01-19] MEDS: FLUTICASONE PROP 44 MCG (*SP) 10.6 GM 2 PUFF INHALATION ×2 (09:25→20:33)
[2023-01-19 09:26] VITALS: O2SAT 97
--- NOTE | 2023-01-19 09:56 | PCOTNOTE ---
Spoke with EMERSON Melgar about bedrest orders and she said bedrest orders can be d/c'd. Updated RN and asked for orders to be updated.
[2023-01-19 14:00] VITALS: BP 122/57; PULSE 64; RESP 16; TEMP 36.8; O2SAT 97
--- NOTE | 2023-01-19 14:55 | PM.IMPN ---
Progress Note: A&P Assessment and Plan (1) Altered mental status, unspecified: Qualifiers: Altered mental status type: unspecified Qualified Code(s): R41.82 - Altered mental status, unspecified Code(s): R41.82 - Altered mental status, unspecified Status: Acute Assessment and Plan: history of dementia could be worsened by UTI and/or Covid infection (2) UTI (urinary tract infection): Code(s): N39.0 - Urinary tract infection, site not specified Status: Acute Assessment and Plan: has been on Bactrim however urine culture grew organism resistant more antibiotics. ER workup with UA positive for nitrates 4+ bacteria 0-5 days. continue ertapenem Mild KIERAN and CKD stage 3 continue IV hydration creatinine improved to 0.6, GFR now >60 (3) Dementia: Qualifiers: Dementia type: unspecified type Dementia behavioral or psychological symptom: with agitation Dementia severity: moderate Qualified Code(s): F03.B11 - Unspecified dementia, moderate, with agitation Code(s): F03.90 - Unspecified dementia, unspecified severity, without behavioral disturbance, psychotic disturbance, mood disturbance, and anxiety Status: Chronic Assessment and Plan: continue home medications (4) Essential hypertension: Code(s): I10 - Essential (primary) hypertension Status: Chronic Assessment and Plan: continue home meds BPs reviewed and stable (5) COVID-19: Code(s): U07.1 - COVID-19 Status: Acute Assessment and Plan: stable, not requiring oxygen unsure if/when symptoms may have started due to poor historian supportive care if needed Plan Subjective Date/time seen: 01/19/23 14:55 Interval history: Patient is a 77 YO female presenting with UTI. Patient herself is demented and not able to provide any history. She has recurrent UTIs, her last urine culture grew an organism that is resistant to oral antibiotics. Patient has also been having a cough and chest congestion. Patient's daughter states she had 1 episode of emesis. No diarrhea. Patient denies any pain. Patient has been on Bactrim for the last week. She appears to be in no acute distress, but at baseline confusion and unable to provide much history or ROS. She was also found to be covid positive on admission, unsure of if/when symptoms may have started. PT/OT eval ordered for d/c planning. Will continue ertapenum and monitor kidney function. creatinine and GFR improved from admission. Review of Systems Review of Systems: ROS unobtainable: Yes unobtainable due to mental status Exam Narrative: GENERAL: ? Nontoxic, no acute distress, pleasant cooperative HEAD: Normocephalic, atraumatic. EYES: PERRLA and EOMI. NECK: Supple. LUNGS: Clear to auscultation bilaterally.? No respiratory distress. HEART: RRR, no murmurs heard? ABDOMEN: Soft, nontender, nondistended. Non-tender to palpation. EXTREMITIES: No edema. SKIN: Warm, dry, no rash. NEURO:? Alert and conversant pleasantly confused. PSYCH: Normal mood and affect. Objective Data Vital Signs Vital Signs: Vital Signs - 24 hr 01/18/23 19:45 01/19/23 06:00 01/19/23 09:26 Temperature 96.8 F L 97.2 F L Pulse Rate 76 72 Respiratory Rate 18 16 Blood Pressure 113/91 H 158/72 H Pulse Oximetry 94 98 97 Oxygen Delivery Room Air Intake/Output Intake/Output: Intake & Output 01/16/23 01/17/23 01/18/23 01/19/23 23:59 23:59 23:59 23:59 Intake Total 3300 368 Balance 3300 368 Meds/Results Medications: Active Medications Generic Name Dose Route Start Last Admin Trade Name Freq PRN Reason Stop Dose Admin Alendronate Sodium 70 mg 01/22/23 06:30 Alendronate Sodium 70 Mg Tablet PO Sa@0630 [facility] Aspirin 81 mg 01/18/23 09:00 01/19/23 08:24 Aspirin 81 Mg Enteric Tablet PO 81 mg QAM [facility] Administration Donepezil HCl 10 mg 01/18/23 18:00 01/18/23 16:59 [place]
[2023-01-19] MEDS: DONEPEZIL HCL 10 MG TABLET PO (17:36)
[2023-01-19 22:00] VITALS: BP 125/78; PULSE 64; RESP 16; TEMP 36.6; O2SAT 95
[2023-01-20 06:00] VITALS: BP 139/75; PULSE 80; RESP 16; TEMP 36.6; O2SAT 99
[2023-01-20 07:00] LABS: Basophils Percent Auto 0.6 % (0.2-1.2); Eosinophils Absolute Auto 0.1 K/mm3 (0-0.3); Eosinophils Percent Auto 2.1 % (0-4.4); Hematocrit 37.8 % (37.0-47.0); Hemoglobin 12.2 g/dL (12.0-15.0); Immature Granulocyte Absolute 0.02 K/mm3 (0.00-0.031); Immature Granulocyte Percent A 0.4 % (0-0.5); Mean Corpuscular HGB Conc 32.3 g/dl (32-36); Mean Corpuscular Hemoglobin 31.3 pg (26-34); Mean Corpuscular Volume 96.9 fl (80-100); Mean Platelet Volume 9.9 fl (7.4-10.4); Monocytes Absolute Auto 0.4 K/mm3 (0.1-0.6); Monocytes Percent Auto 7.5 % (2.6-8.5); Neutrophils Absolute Auto 3.6 K/mm3 (1.3-6.7); Neutrophils Percent Auto 68.4 % (45.5-73.1); Platelet Count Result 200 k/mm3 (150-375); Red Cell Distribution Width 12.8 % (11.5-14.5); White Blood Count 5.2 K/mm3 (4.5-10.0)
[2023-01-20 07:12] LABS: Anion Gap 7 mmol/L (8-16); Blood Urea Nitrogen 5 mg/dL (7-17); Calcium 8.3 mg/dL (8.4-10.2); Carbon Dioxide 24 mmol/L (22-30); Chloride 107 mmol/L (98-107); Estimated CRCL calculation 86 ml/min; Estimated Glomerular Filt Rate > 60; Glucose 90 mg/dL (65-110); Potassium 3.4 mmol/L (3.4-5.0); Sodium 138 mmol/L (137-145)
[2023-01-20] MEDS: FLUTICASONE PROP 44 MCG (*SP) 10.6 GM 2 PUFF INHALATION ×2 (07:50→18:06)
[2023-01-20] MEDS: ENOXAPARIN 40 MG/0.4 ML SYRINGE SUB-Q (10:00)
[2023-01-20] MEDS: ASPIRIN 81 MG ENTERIC TABLET PO (10:00)
[2023-01-20] MEDS: MEMANTINE 10 MG TABLET PO ×2 (10:01→17:36)
[2023-01-20] MEDS: SERTRALINE HCL 50 MG TABLET 150 MG PO (10:01)
[2023-01-20] MEDS: ERTAPENEM 1 GM/NS 50 ML 1 GM/50 ML BAG IVPB (12:00)
--- NOTE | 2023-01-20 13:19 | PM.IMPN ---
Progress Note: A&P Assessment and Plan (1) Altered mental status, unspecified: Qualifiers: Altered mental status type: unspecified Qualified Code(s): R41.82 - Altered mental status, unspecified Code(s): R41.82 - Altered mental status, unspecified Status: Acute Assessment and Plan: history of dementia could be worsened by UTI and/or Covid infection (2) UTI (urinary tract infection): Code(s): N39.0 - Urinary tract infection, site not specified Status: Acute Assessment and Plan: has been on Bactrim however urine culture grew organism resistant more antibiotics. ER workup with UA positive for nitrates 4+ bacteria 0-5 days. continue ertapenem until sensitivity results Mild KIERAN and CKD stage 3 continue IV hydration creatinine improved to 0.6, GFR now >60 (3) Dementia: Qualifiers: Dementia type: unspecified type Dementia behavioral or psychological symptom: with agitation Dementia severity: moderate Qualified Code(s): F03.B11 - Unspecified dementia, moderate, with agitation Code(s): F03.90 - Unspecified dementia, unspecified severity, without behavioral disturbance, psychotic disturbance, mood disturbance, and anxiety Status: Chronic Assessment and Plan: continue home medications (4) Essential hypertension: Code(s): I10 - Essential (primary) hypertension Status: Chronic Assessment and Plan: continue home meds BPs reviewed and stable (5) COVID-19: Code(s): U07.1 - COVID-19 Status: Acute Assessment and Plan: stable, not requiring oxygen unsure if/when symptoms may have started due to poor historian supportive care if needed Plan Subjective Date/time seen: 01/20/23 13:19 Interval history: Patient is a 77 YO female presenting with UTI. Patient herself is demented and not able to provide any history. She has recurrent UTIs, her last urine culture grew an organism that is resistant to oral antibiotics. Patient has also been having a cough and chest congestion. Patient's daughter states she had 1 episode of emesis. No diarrhea. Patient denies any pain. Patient has been on Bactrim for the last week. She appears to be in no acute distress, but at baseline confusion and unable to provide much history or ROS. She was also found to be covid positive on admission, unsure of if/when symptoms may have started. PT/OT eval ordered for d/c planning. Will continue ertapenum and monitor kidney function. creatinine and GFR improved from admission. Review of Systems Review of Systems: ROS unobtainable: Yes unobtainable due to mental status Exam Narrative: GENERAL: ? Nontoxic, no acute distress, pleasant cooperative HEAD: Normocephalic, atraumatic. EYES: PERRLA and EOMI. NECK: Supple. LUNGS: Clear to auscultation bilaterally.? No respiratory distress. HEART: RRR, no murmurs heard? ABDOMEN: Soft, nontender, nondistended. Non-tender to palpation. EXTREMITIES: No edema. SKIN: Warm, dry, no rash. NEURO:? Alert and conversant pleasantly confused. PSYCH: Normal mood and affect. Objective Data Vital Signs Vital Signs: Vital Signs - 24 hr 01/19/23 14:00 01/19/23 22:00 01/20/23 06:00 Temperature 98.3 F 98 F 97.9 F Pulse Rate 64 64 80 Respiratory Rate 16 16 16 Blood Pressure 122/57 L 125/78 139/75 Pulse Oximetry 97 95 99 Oxygen Delivery 01/20/23 08:00 01/20/23 11:28 Temperature Pulse Rate Respiratory Rate Blood Pressure Pulse Oximetry Oxygen Delivery Room Air Room Air Intake/Output Intake/Output: Intake & Output 01/17/23 01/18/23 01/19/23 01/20/23 23:59 23:59 23:59 23:59 Intake Total 3300 1858 120 Output Total 450 Balance 3300 1408 120 Meds/Results Medications: Active Medications Generic Name Dose Route Start Last Admin Trade Name Freq PRN Reason Stop Dose Admin Alendronate Sodium 70 mg 01/22/23 06:30 Alendronate Sodium 70 Mg Ta
[2023-01-20 16:13] VITALS: BP 121/107; PULSE 87; RESP 12; TEMP 36.4; O2SAT 94
[2023-01-20] MEDS: DONEPEZIL HCL 10 MG TABLET PO (17:36)
[2023-01-20] MEDS: MEROPENEM 1 GM/NS 100 ML 1 GM/100 ML BAG IVPB (17:41)
[2023-01-20 22:00] VITALS: BP 132/73; PULSE 83; RESP 22; TEMP 36.4; O2SAT 96
[2023-01-21] MEDS: MEROPENEM 1 GM/NS 100 ML 1 GM/100 ML BAG IVPB ×3 (01:24→17:35)
[2023-01-21 06:00] VITALS: BP 137/65; PULSE 71; RESP 20; TEMP 36.4; O2SAT 99
[2023-01-21 07:03] LABS: Basophils Percent Auto 0.7 % (0.2-1.2); Eosinophils Absolute Auto 0.1 K/mm3 (0-0.3); Eosinophils Percent Auto 2.1 % (0-4.4); Hematocrit 36.8 % (37.0-47.0); Hemoglobin 11.8 g/dL (12.0-15.0); Immature Granulocyte Absolute 0.04 K/mm3 (0.00-0.031); Immature Granulocyte Percent A 0.9 % (0-0.5); Lymphocytes Absolute Auto 1.12 K/mm3 (0.9-3.2); Lymphocytes Percent Auto 26.5 % (18.3-44.2); Mean Corpuscular HGB Conc 32.1 g/dl (32-36); Mean Corpuscular Hemoglobin 31.4 pg (26-34); Mean Corpuscular Volume 97.9 fl (80-100); Mean Platelet Volume 10.1 fl (7.4-10.4); Monocytes Absolute Auto 0.4 K/mm3 (0.1-0.6); Monocytes Percent Auto 9.5 % (2.6-8.5); Neutrophils Absolute Auto 2.6 K/mm3 (1.3-6.7); Neutrophils Percent Auto 60.3 % (45.5-73.1); Platelet Count Result 205 k/mm3 (150-375); Red Blood Count 3.76 M/mm3 (4.2-5.4); Red Cell Distribution Width 12.9 % (11.5-14.5); White Blood Count 4.2 K/mm3 (4.5-10.0)
[2023-01-21 07:15] LABS: Anion Gap 5 mmol/L (8-16); Blood Urea Nitrogen 8 mg/dL (7-17); Carbon Dioxide 26 mmol/L (22-30); Chloride 109 mmol/L (98-107); Estimated CRCL calculation 71 ml/min; Estimated Glomerular Filt Rate > 60; Glucose 92 mg/dL (65-110); Potassium 3.4 mmol/L (3.4-5.0); Sodium 140 mmol/L (137-145)
[2023-01-21] MEDS: FLUTICASONE PROP 44 MCG (*SP) 10.6 GM 2 PUFF INHALATION ×2 (09:48→20:02)
[2023-01-21] MEDS: SERTRALINE HCL 50 MG TABLET 150 MG PO (10:09)
[2023-01-21] MEDS: MEMANTINE 10 MG TABLET PO ×2 (10:09→17:35)
[2023-01-21] MEDS: ASPIRIN 81 MG ENTERIC TABLET PO (10:09)
[2023-01-21] MEDS: SODIUM CHLORIDE 0.9% IV 1,000 ML 50 ML IV CONT (10:12)
[2023-01-21] MEDS: ENOXAPARIN 40 MG/0.4 ML SYRINGE SUB-Q (10:12)
--- NOTE | 2023-01-21 12:17 | PM.IMPN ---
Progress Note: A&P Assessment and Plan (1) Altered mental status, unspecified: Qualifiers: Altered mental status type: unspecified Qualified Code(s): R41.82 - Altered mental status, unspecified Code(s): R41.82 - Altered mental status, unspecified Status: Acute Assessment and Plan: history of dementia could be worsened by UTI and/or Covid infection (2) UTI (urinary tract infection): Code(s): N39.0 - Urinary tract infection, site not specified Status: Acute Assessment and Plan: has been on Bactrim however urine culture grew organism resistant more antibiotics. ER workup with UA positive for nitrates 4+ bacteria 0-5 days. Switched to meropenem based on UA culture results Mild KIERAN and CKD stage 3 continue IV hydration creatinine improved to 0.6, GFR now >60 (3) Dementia: Qualifiers: Dementia type: unspecified type Dementia behavioral or psychological symptom: with agitation Dementia severity: moderate Qualified Code(s): F03.B11 - Unspecified dementia, moderate, with agitation Code(s): F03.90 - Unspecified dementia, unspecified severity, without behavioral disturbance, psychotic disturbance, mood disturbance, and anxiety Status: Chronic Assessment and Plan: continue home medications (4) Essential hypertension: Code(s): I10 - Essential (primary) hypertension Status: Chronic Assessment and Plan: continue home meds BPs reviewed and stable (5) COVID-19: Code(s): U07.1 - COVID-19 Status: Acute Assessment and Plan: stable, not requiring oxygen unsure if/when symptoms may have started due to poor historian supportive care if needed Plan Subjective Date/time seen: 01/21/23 12:17 Interval history: Patient is a 77 YO female presenting with UTI. Patient herself is demented and not able to provide any history. She has recurrent UTIs, her last urine culture grew an organism that is resistant to oral antibiotics. Patient has also been having a cough and chest congestion. Patient's daughter states she had 1 episode of emesis. No diarrhea. Patient denies any pain. Patient has been on Bactrim for the last week. She appears to be in no acute distress, but at baseline confusion and unable to provide much history or ROS. PT/OT eval ordered for d/c planning. Switched meropenem based on UA culture sensitivity and will monitor kidney function. Review of Systems Review of Systems: ROS unobtainable: Yes unobtainable due to mental status Exam Narrative: GENERAL: ? Nontoxic, no acute distress, pleasant cooperative HEAD: Normocephalic, atraumatic. EYES: PERRLA and EOMI. NECK: Supple. LUNGS: Clear to auscultation bilaterally.? No respiratory distress. HEART: RRR, no murmurs heard? ABDOMEN: Soft, nontender, nondistended. Non-tender to palpation. EXTREMITIES: No edema. SKIN: Warm, dry, no rash. NEURO:? Alert and conversant pleasantly confused. PSYCH: Normal mood and affect. Objective Data Vital Signs Vital Signs: Vital Signs - 24 hr 01/20/23 16:13 01/20/23 22:00 01/21/23 06:00 Temperature 97.5 F L 97.6 F 97.6 F Pulse Rate 87 83 71 Respiratory Rate 12 22 H 20 Blood Pressure 121/107 H 132/73 137/65 Pulse Oximetry 94 96 99 Oxygen Delivery 01/21/23 08:00 Temperature Pulse Rate Respiratory Rate Blood Pressure Pulse Oximetry Oxygen Delivery Room Air Intake/Output Intake/Output: Intake & Output 01/18/23 01/19/23 01/20/23 01/21/23 23:59 23:59 23:59 23:59 Intake Total 3300 1858 1510 200 Output Total 450 Balance 3300 1408 1510 200 Meds/Results Medications: Active Medications Generic Name Dose Route Start Last Admin Trade Name Freq PRN Reason Stop Dose Admin Alendronate Sodium 70 mg 01/22/23 06:30 Alendronate Sodium 70 Mg Tablet PO @0630 [facility] Aspirin 81 mg 01/18/23 09:00 01/21/23 10:09 Aspirin 81 Mg Enteric Tablet PO 81 mg
[2023-01-21 14:00] VITALS: BP 134/75; PULSE 71; RESP 16; TEMP 36.4; O2SAT 98
[2023-01-21] MEDS: DONEPEZIL HCL 10 MG TABLET PO (17:35)
[2023-01-21 20:20] VITALS: BP 130/75; PULSE 69; RESP 18; TEMP 36; O2SAT 99
[2023-01-22] MEDS: MEROPENEM 1 GM/NS 100 ML 1 GM/100 ML BAG IVPB ×3 (02:07→17:11)
[2023-01-22 05:15] VITALS: BP 129/67; PULSE 66; RESP 20; TEMP 36.1; O2SAT 97
[2023-01-22] MEDS: ALENDRONATE SODIUM 70 MG TABLET PO (06:32)
[2023-01-22 07:35] LABS: Hematocrit 37.4 % (37.0-47.0); Mean Corpuscular HGB Conc 32.1 g/dl (32-36); Mean Corpuscular Hemoglobin 31.6 pg (26-34); Mean Corpuscular Volume 98.4 fl (80-100); Mean Platelet Volume 9.8 fl (7.4-10.4); Platelet Count Result 228 k/mm3 (150-375); Red Cell Distribution Width 12.6 % (11.5-14.5); White Blood Count 3.6 K/mm3 (4.5-10.0)
[2023-01-22 07:42] LABS: Anion Gap 8 mmol/L (8-16); Blood Urea Nitrogen 8 mg/dL (7-17); Calcium 8.3 mg/dL (8.4-10.2); Carbon Dioxide 24 mmol/L (22-30); Chloride 107 mmol/L (98-107); Estimated CRCL calculation 71 ml/min; Estimated Glomerular Filt Rate > 60; Glucose 87 mg/dL (65-110); Potassium 3.6 mmol/L (3.4-5.0); Sodium 139 mmol/L (137-145)
[2023-01-22] MEDS: SERTRALINE HCL 50 MG TABLET 150 MG PO (09:16)
[2023-01-22] MEDS: ASPIRIN 81 MG ENTERIC TABLET PO (09:16)
[2023-01-22] MEDS: ENOXAPARIN 40 MG/0.4 ML SYRINGE SUB-Q (09:16)
[2023-01-22] MEDS: MEMANTINE 10 MG TABLET PO ×2 (09:16→17:11)
[2023-01-22] MEDS: SODIUM CHLORIDE 0.9% IV 1,000 ML 50 ML IV CONT (09:21)
[2023-01-22] MEDS: FLUTICASONE PROP 44 MCG (*SP) 10.6 GM 2 PUFF INHALATION ×2 (09:26→20:27)
[2023-01-22 10:05] VITALS: BMI 10.0
--- NOTE | 2023-01-22 12:56 | PM.IMPN ---
Progress Note: A&P Assessment and Plan (1) Altered mental status, unspecified: Qualifiers: Altered mental status type: unspecified Qualified Code(s): R41.82 - Altered mental status, unspecified Code(s): R41.82 - Altered mental status, unspecified Status: Acute Assessment and Plan: history of dementia could be worsened by UTI and/or Covid infection (2) UTI (urinary tract infection): Code(s): N39.0 - Urinary tract infection, site not specified Status: Acute Assessment and Plan: has been on Bactrim however urine culture grew organism resistant more antibiotics. ER workup with UA positive for nitrates 4+ bacteria 0-5 days. Switched to meropenem based on UA culture results, will need hospitalization for IV administration for 7 day course Mild KIERAN and CKD stage 3 continue IV hydration as needed creatinine improved to 0.6, GFR now >60 (3) Dementia: Qualifiers: Dementia type: unspecified type Dementia behavioral or psychological symptom: with agitation Dementia severity: moderate Qualified Code(s): F03.B11 - Unspecified dementia, moderate, with agitation Code(s): F03.90 - Unspecified dementia, unspecified severity, without behavioral disturbance, psychotic disturbance, mood disturbance, and anxiety Status: Chronic Assessment and Plan: continue home medications (4) Essential hypertension: Code(s): I10 - Essential (primary) hypertension Status: Chronic Assessment and Plan: continue home meds BPs reviewed and stable (5) COVID-19: Code(s): U07.1 - COVID-19 Status: Acute Assessment and Plan: stable, not requiring oxygen unsure if/when symptoms may have started due to poor historian supportive care if needed Plan Subjective Date/time seen: 01/22/23 12:56 Interval history: Patient is a 77 YO female presenting with UTI. Patient herself is demented and not able to provide any history. She has recurrent UTIs, her last urine culture grew an organism that is resistant to oral antibiotics. Patient has also been having a cough and chest congestion. Patient's daughter states she had 1 episode of emesis. No diarrhea. Patient denies any pain. Patient has been on Bactrim for the last week. She appears to be in no acute distress, sitting up in bed. She has no complaints, but cannot answer all questions. Switched meropenem based on UA culture sensitivity and will continue IV antibiotics here until she has completed 7 day course as she will be returning home at d/c and does not have oral AB coverage. Exam Narrative: GENERAL: ? Nontoxic, no acute distress, pleasant cooperative HEAD: Normocephalic, atraumatic. EYES: PERRLA and EOMI. NECK: Supple. LUNGS: Clear to auscultation bilaterally.? No respiratory distress. HEART: RRR, no murmurs heard? ABDOMEN: Soft, nontender, nondistended. Non-tender to palpation. EXTREMITIES: No edema. SKIN: Warm, dry, no rash. NEURO:? Alert and conversant pleasantly confused. PSYCH: Normal mood and affect. Objective Data Vital Signs Vital Signs: Vital Signs - 24 hr 01/21/23 14:00 01/21/23 20:20 01/21/23 20:00 Temperature 97.5 F L 96.8 F L Pulse Rate 71 69 Respiratory Rate 16 18 Blood Pressure 134/75 130/75 Pulse Oximetry 98 99 Oxygen Delivery Room Air 01/22/23 05:15 01/22/23 08:00 Temperature 97 F L Pulse Rate 66 Respiratory Rate 20 Blood Pressure 129/67 Pulse Oximetry 97 Oxygen Delivery Room Air Intake/Output Intake/Output: Intake & Output 01/19/23 01/20/23 01/21/23 01/22/23 23:59 23:59 23:59 23:59 Intake Total 1858 1276 651 5440 Output Total 450 Balance 1408 6314 572 4224 Meds/Results Medications: Active Medications Generic Name Dose Route Start Last Admin Trade Name Freq PRN Reason Stop Dose Admin Alendronate Sodium 70 mg 01/22/23 06:30 01/22/23 06:32 Alendronate Sodium 70 Mg Tablet PO 70 mg
[2023-01-22 14:00] VITALS: BP 105/71; PULSE 87; RESP 18; TEMP 36.1; O2SAT 97
[2023-01-22] MEDS: DONEPEZIL HCL 10 MG TABLET PO (17:11)
[2023-01-22 22:00] VITALS: PULSE 87; RESP 18; TEMP 36; O2SAT 100
[2023-01-23 00:15] VITALS: BP 124/88; PULSE 68; RESP 18; TEMP 35.9; O2SAT 95
[2023-01-23] MEDS: MEROPENEM 1 GM/NS 100 ML 1 GM/100 ML BAG IVPB ×3 (01:15→19:02)
[2023-01-23 04:35] VITALS: BP 132/78; PULSE 67; RESP 18; TEMP 35.8; O2SAT 99
[2023-01-23] MEDS: SODIUM CHLORIDE 0.9% IV 1,000 ML 50 ML IV CONT (06:48)
[2023-01-23 07:53] LABS: Hematocrit 37.9 % (37.0-47.0); Hemoglobin 12.1 g/dL (12.0-15.0); Mean Corpuscular HGB Conc 31.9 g/dl (32-36); Mean Corpuscular Hemoglobin 31.2 pg (26-34); Mean Corpuscular Volume 97.7 fl (80-100); Mean Platelet Volume 9.5 fl (7.4-10.4); Platelet Count Result 249 k/mm3 (150-375); Red Blood Count 3.88 M/mm3 (4.2-5.4); Red Cell Distribution Width 12.8 % (11.5-14.5); White Blood Count 4.6 K/mm3 (4.5-10.0)
[2023-01-23 08:15] LABS: Anion Gap 4 mmol/L (8-16); Blood Urea Nitrogen 7 mg/dL (7-17); Calcium 8.4 mg/dL (8.4-10.2); Carbon Dioxide 27 mmol/L (22-30); Chloride 108 mmol/L (98-107); Estimated CRCL calculation 71 ml/min; Estimated Glomerular Filt Rate > 60; Glucose 91 mg/dL (65-110); Potassium 3.8 mmol/L (3.4-5.0); Sodium 139 mmol/L (137-145)
[2023-01-23] MEDS: ENOXAPARIN 40 MG/0.4 ML SYRINGE SUB-Q (10:32)
[2023-01-23] MEDS: MEMANTINE 10 MG TABLET PO ×2 (10:32→16:22)
[2023-01-23] MEDS: SERTRALINE HCL 50 MG TABLET 150 MG PO (10:32)
[2023-01-23] MEDS: ASPIRIN 81 MG ENTERIC TABLET PO (10:32)
--- NOTE | 2023-01-23 11:12 | PM.IMPN ---
Progress Note: A&P Assessment and Plan (1) Altered mental status, unspecified: Qualifiers: Altered mental status type: unspecified Qualified Code(s): R41.82 - Altered mental status, unspecified Code(s): R41.82 - Altered mental status, unspecified Status: Acute Assessment and Plan: history of dementia could be worsened by UTI and/or Covid infection (2) UTI (urinary tract infection): Code(s): N39.0 - Urinary tract infection, site not specified Status: Acute Assessment and Plan: has been on Bactrim however urine culture grew organism resistant more antibiotics. ER workup with UA positive for nitrates 4+ bacteria 0-5 days. Switched to meropenem based on UA culture results, will need hospitalization for IV administration for 7 day course Mild KIERAN and CKD stage 3 continue IV hydration as needed creatinine 0.5, GFR now >60 (3) Dementia: Qualifiers: Dementia type: unspecified type Dementia behavioral or psychological symptom: with agitation Dementia severity: moderate Qualified Code(s): F03.B11 - Unspecified dementia, moderate, with agitation Code(s): F03.90 - Unspecified dementia, unspecified severity, without behavioral disturbance, psychotic disturbance, mood disturbance, and anxiety Status: Chronic Assessment and Plan: continue home medications (4) Essential hypertension: Code(s): I10 - Essential (primary) hypertension Status: Chronic Assessment and Plan: continue home meds BPs reviewed and stable (5) COVID-19: Code(s): U07.1 - COVID-19 Status: Acute Assessment and Plan: stable, not requiring oxygen unsure if/when symptoms may have started due to poor historian supportive care if needed Plan Subjective Date/time seen: 01/23/23 11:12 Interval history: Patient is a 77 YO female presenting with UTI. Patient herself is demented and not able to provide any history. She has recurrent UTIs, her last urine culture grew an organism that is resistant to oral antibiotics. Patient has also been having a cough and chest congestion. Patient's daughter states she had 1 episode of emesis. No diarrhea. Patient denies any pain. Patient has been on Bactrim for the last week. She appears to be in no acute distress, laying awake in bed. She has no complaints, but cannot answer all questions. Switched meropenem based on UA culture sensitivity and will continue IV antibiotics here until she has completed 7 day course as she will be returning home at d/c and does not have oral AB coverage. Review of Systems Review of Systems: All systems reviewed & are unremarkable except as noted in HPI and below ROS unobtainable: Yes unobtainable due to mental status Exam Narrative: GENERAL: ? Nontoxic, no acute distress, pleasant cooperative HEAD: Normocephalic, atraumatic. EYES: PERRLA and EOMI. NECK: Supple. LUNGS: Clear to auscultation bilaterally.? No respiratory distress. HEART: RRR, no murmurs heard? ABDOMEN: Soft, nontender, nondistended. Non-tender to palpation. EXTREMITIES: No edema. SKIN: Warm, dry, no rash. NEURO:? Alert and conversant pleasantly confused. PSYCH: Normal mood and affect. Objective Data Vital Signs Vital Signs: Vital Signs - 24 hr 01/22/23 14:00 01/22/23 20:00 01/22/23 22:00 Temperature 97.0 F L 96.8 F L Pulse Rate 87 87 Respiratory Rate 18 18 Blood Pressure 105/71 Pulse Oximetry 97 100 Oxygen Delivery Room Air 01/23/23 00:15 01/23/23 04:35 Temperature 96.7 F L 96.5 F L Pulse Rate 68 67 Respiratory Rate 18 18 Blood Pressure 124/88 132/78 Pulse Oximetry 95 99 Oxygen Delivery Intake/Output Intake/Output: Intake & Output 01/20/23 01/21/23 01/22/23 01/23/23 23:59 23:59 23:59 23:59 Intake Total 0045 712 9181 1400 Balance 9739 916 1154 1400 Meds/Results Medications: Active Medications Generic Name Dose Route Start Last Admin
[2023-01-23 14:00] VITALS: BP 131/77; PULSE 83; RESP 16; TEMP 36.6; O2SAT 98
[2023-01-23] MEDS: DONEPEZIL HCL 10 MG TABLET PO (19:05)
[2023-01-23] MEDS: FLUTICASONE PROP 44 MCG (*SP) 10.6 GM 2 PUFF INHALATION (19:45)
[2023-01-23 21:05] VITALS: BP 115/67; PULSE 62; RESP 16; TEMP 35.7; O2SAT 97
[2023-01-24] MEDS: MEROPENEM 1 GM/NS 100 ML 1 GM/100 ML BAG IVPB ×3 (01:25→14:57)
[2023-01-24 04:31] VITALS: BP 136/78; PULSE 87; RESP 18; TEMP 35.9; O2SAT 99
[2023-01-24] MEDS: SODIUM CHLORIDE 0.9% IV 1,000 ML 50 ML IV CONT (05:30)
[2023-01-24 07:54] LABS: Hematocrit 39.9 % (37.0-47.0); Hemoglobin 12.5 g/dL (12.0-15.0); Mean Corpuscular HGB Conc 31.3 g/dl (32-36); Mean Corpuscular Hemoglobin 30.9 pg (26-34); Mean Corpuscular Volume 98.8 fl (80-100); Mean Platelet Volume 9.4 fl (7.4-10.4); Platelet Count Result 247 k/mm3 (150-375); Red Blood Count 4.04 M/mm3 (4.2-5.4); Red Cell Distribution Width 12.7 % (11.5-14.5); White Blood Count 5.8 K/mm3 (4.5-10.0)
[2023-01-24 07:58] LABS: Anion Gap 4 mmol/L (8-16); Blood Urea Nitrogen 8 mg/dL (7-17); Calcium 8.4 mg/dL (8.4-10.2); Carbon Dioxide 27 mmol/L (22-30); Chloride 109 mmol/L (98-107); Estimated CRCL calculation 71 ml/min; Estimated Glomerular Filt Rate > 60; Glucose 90 mg/dL (65-110); Potassium 3.9 mmol/L (3.4-5.0); Sodium 140 mmol/L (137-145)
[2023-01-24 08:00] VITALS: PULSE 87; RESP 18; O2SAT 99
[2023-01-24] MEDS: FLUTICASONE PROP 44 MCG (*SP) 10.6 GM 2 PUFF INHALATION (08:54)
[2023-01-24] MEDS: ASPIRIN 81 MG ENTERIC TABLET PO (08:59)
[2023-01-24] MEDS: SERTRALINE HCL 50 MG TABLET 150 MG PO (08:59)
[2023-01-24] MEDS: MEMANTINE 10 MG TABLET PO (08:59)
[2023-01-24] MEDS: ENOXAPARIN 40 MG/0.4 ML SYRINGE SUB-Q (09:11)
--- NOTE | 2023-01-24 12:37 | PM.DS ---
DS: Admitting Diagnosis Discharge Date 01/24/23 Admitting Diagnosis altered mental status DS: Discharge Diagnosis Discharge Diagnosis (1) Altered mental status, unspecified: Qualifiers: Altered mental status type: unspecified Qualified Code(s): R41.82 - Altered mental status, unspecified Code(s): R41.82 - Altered mental status, unspecified Status: Resolved Assessment and Plan: history of dementia could be worsened by UTI and/or Covid infection appears to be back to baseline (2) UTI (urinary tract infection): Code(s): N39.0 - Urinary tract infection, site not specified Status: Acute Assessment and Plan: has been on Bactrim however urine culture grew organism resistant more antibiotics. ER workup with UA positive for nitrates 4+ bacteria 0-5 days. Switched to meropenem based on UA culture results, completed 7 day course via IV today prior to d/c as bacteria was PO resistant and unable to administer at home (3) Dementia: Qualifiers: Dementia type: unspecified type Dementia behavioral or psychological symptom: with agitation Dementia severity: moderate Qualified Code(s): F03.B11 - Unspecified dementia, moderate, with agitation Code(s): F03.90 - Unspecified dementia, unspecified severity, without behavioral disturbance, psychotic disturbance, mood disturbance, and anxiety Status: Chronic Assessment and Plan: continue home medications (4) Essential hypertension: Code(s): I10 - Essential (primary) hypertension Status: Chronic Assessment and Plan: continue home meds BPs reviewed and stable (5) COVID-19: Code(s): U07.1 - COVID-19 Status: Acute Assessment and Plan: stable, not requiring oxygen unsure if/when symptoms may have started due to poor historian Plan DS: Summary Hospital Course Hospital Course: Patient is a 77 YO female presenting with UTI. Patient herself is demented and not able to provide any history. She has recurrent UTIs, her last urine culture grew an organism that is resistant to oral antibiotics. Patient has also been having a cough and chest congestion. Patient's daughter states she had 1 episode of emesis. No diarrhea. Patient denies any pain. Patient has been on Bactrim prior to admission x1 week. Switched meropenem based on UA culture sensitivity and completed course of IV antibiotics here in patient and will be returning home at d/c as bacteria did not have oral AB coverage. She is stable on room air, no distress and appears to be at baseline cognition. Stable to return home today and home health will continue to follow. Status at Discharge Functional status at discharge: wheelchair bound Overall status at discharge: patient is back to baseline Time Spent with Patient Time attestation: Total time spent providing and/or coordinating discharge services: Exam Narrative: GENERAL: ? Nontoxic, no acute distress, pleasant cooperative HEAD: Normocephalic, atraumatic. EYES: PERRLA and EOMI. NECK: Supple. LUNGS: Clear to auscultation bilaterally.? No respiratory distress. HEART: RRR, no murmurs heard? ABDOMEN: Soft, nontender, nondistended. Non-tender to palpation. EXTREMITIES: No edema. SKIN: Warm, dry, no rash. NEURO:? Alert and conversant pleasantly confused. PSYCH: Normal mood and affect. DS: Data Data Completed and Pending Labs on day of discharge: Labs from last 24 hours 01/24/23 07:33 WBC 5.8 RBC 4.04 L Hgb 12.5 Hct 39.9 MCV 98.8 MCH 30.9 MCHC 31.3 L RDW 12.7 Plt Count 247 MPV 9.4 Sodium 140 Potassium 3.9 Chloride 109 H Carbon Dioxide 27 Anion Gap 4 L BUN 8 Creatinine 0.50 L Estim Creat Clear Calc 71 Estimated GFR > 60 Glucose 90 Calcium 8.4 Discharge Plan Discharge Attending physician on discharge: Lasha Sánchez Discharging Clinician: Talia Barajas Anticipated Discharge Date/T
[2023-01-24 14:00] VITALS: BP 120/68; PULSE 103; RESP 16; TEMP 36.6; O2SAT 99
== END 2023-01-24 17:46 | disposition home health service (06) | DRG 689 ==
LOC: ANHED 01-18 00:31 → ANH3MEDSUR 01-18 02:42
PROVIDERS: Internal Medicine; Admitting Provider Internal Medicine; Emergency Provider Emergency Medicine; PCP Family Medicine; Visit Provider Nurse Practitioner
DX: N39.0 Urinary tract infection, site not specified (principal); U07.1 COVID-19; I48.20 Chronic atrial fibrillation, unspecified; N17.9 Acute kidney failure, unspecified; I12.9 Hypertensive chronic kidney disease with stage 1 through stage 4 chronic kidney disease, or unspecified chronic kidney disease; N18.30 Chronic kidney disease, stage 3 unspecified; B96.89 Other specified bacterial agents as the cause of diseases classified elsewhere; F03.90 Unspecified dementia, unspecified severity, without behavioral disturbance, psychotic disturbance, mood disturbance, and anxiety; F32.A Depression, unspecified; Z95.0 Presence of cardiac pacemaker; Z79.82 Long term (current) use of aspirin
CPT/HCPCS: 36415; 71045; 80048; 80053; 81001; 83605; 83690; 83735; 85025; 85027; 87040; 87077; 87086; 87088; 87186; 87637; 94640; 96360; 96361; 97110; 97162; 97165; 97530; 99285; A9270; G0378; J1335; J1650; J2185; J7030

== ENCOUNTER 2023-04-13 18:02 | Inpatient (IN) | payer MEDICARE, OTHER, SELFPAY ==
--- NOTE | ~2023-04-13 | US_ITS ---
EXAMINATION: US renal BI DATE: 04/14/2023 16:29 INDICATION: Frequent urinary tract infections. TECHNIQUE: Multiple ultrasound grayscale images of the kidneys were obtained. COMPARISON: CT abdomen and pelvis 01/09/2019 FINDINGS: The right kidney measures 10.6 x 4.5 x 5.1 cm. The left kidney measures 9.9 x 6.2 x 5.1 cm. The kidne ys demonstrate normal parenchymal echogenicity. There is no hydronephrosis. The bladder is normal. IMPRESSION: 1. Normal kidneys. No hydronephrosis. Reviewed, dictated and finalized at location A. OR [employer]
--- NOTE | 2023-04-13 18:06 | ADMGEN ---
This patient, Lizeth Hoffmann, was admitted to Medical Room 258-. Patient/family oriented to hospital policies and general routines including ID bracelet, bed and alarms, visiting hours, pain management, procedures, bathroom and other care routines, personal items, smoking policy, room service/diet, and visiting hours. Information on how to activate the Rapid Response Team has been discussed. Patient/Family are encouraged to report perceived risks to care and to ask questions if they do not understand what they are told or what they should do.
[2023-04-13 18:15] VITALS: BP 110/52; PULSE 61; RESP 14; TEMP 36.2; O2SAT 98
--- NOTE | 2023-04-13 20:16 | PM.IMHP ---
H&P: HPI History of Present Illness Date/Time: 04/13/23 20:16 Chief Complaint: Confusion, decreased appetite, weakness Narrative: This is a 77-year-old female with a significant past medical history of dementia, AFib, depression, hypertension, pacemaker, history of UTIs, insomnia, skin cancer who is a direct admit from her primary care physician where she originally presented on 04/06/2023 presented with confusion, decreased appetite, and weakness. She was found to have a urinary tract infection and was started on Bactrim according to the medical record. At that visit her daughter was the 1 giving most of the history. Patient lives at home with her who has been primarily taking care of her. Patient wears depends at baseline due to her incontinence and the daughter feels that this is likely what is been causing her urinary tract infections as her has not been changing her depends on a regular basis. Her primary care physician followed up with patient today and states that her urinary tract infection has not subsided and she still has confusion and weakness. She is being admitted for IV antibiotics as she has failed oral antibiotics and has had multi drug resistant UTIs in the past. Of note she was admitted on 01/18/23 with a UTI and was on ertapenem during that admission. On examination patient is alert and oriented x1 at best. She is very confused today and is unable to answer any medical questions or contribute to her medical history. So most of her medical history has been obtained from the chart and past office visit notes. Labs today were essentially unremarkable. White count 7.6, kidney and liver function are normal. Urine culture that came back on 04/11/2023 is showing Enterobacter cloacae complex resistant to multiple oral antibiotic medications. Review of Systems Review of Systems: ROS unobtainable: Yes unobtainable due to mental status PMFSH Past Medical History Medical History A-fib Body mass index (BMI) 21 to less than 23 Chronic UTI Dementia Depression Dysuria Essential hypertension Fracture of right talus Insomnia Pacemaker Polyuria Sacral decubitus ulcer Skin cancer Skin lesion of right leg SOB (shortness of breath) Urine malodor Wears glasses Surgical History Surgical History History of dilation and curettage History of permanent cardiac pacemaker placement 2019 Hx of tubal ligation Family History Family History Other Arthritis Carcinoma of colon Cerebrovascular accident Family history of coronary artery disease Heart disease Social History Social History Social History: Mrs. Hoffmann is and lives with her in [place]. She designates her , Morgan, as her surrogate decision maker and she wishes to be a full code. She denies alcohol, tobacco, and drug use. Her primary care provider is Dr. Chapito Bridges. Smoking status: Never smoker Second hand tobacco smoke exposure: Yes Alcohol intake: never Substance use: never Substance use type: does not use Do You Feel Safe in your Home?: Yes Lack of Transportation: No Lack of Food: Never True Current Housing: I Have Housing Concerned About Future Housing: No Difficulty Paying Gas/Electric Bills: No Difficulty Paying for Meds: No Currently Unemployed: No Education: High School Diploma/GED Difficulty w/ Childcare or Family Care: No Living arrangements: with family Gender identity (if verbalized by the patient): Female Spiritual care concerns: No Meds Home Medications and Allergies Home Medications Medication Instructions Recorded Confirmed Type sertraline 100 mg tablet 150 mg PO DAILY #135 tabs 02/06/23 04/13/23 Rx alendronate 70 mg tablet (Fosam
[2023-04-13 20:45] LABS: Basophils Percent Auto 0.4 % (0.2-1.2); Eosinophils Absolute Auto 0.2 K/mm3 (0-0.3); Eosinophils Percent Auto 2.1 % (0-4.4); Hematocrit 43.4 % (37.0-47.0); Hemoglobin 13.9 g/dL (12.0-15.0); Immature Granulocyte Absolute 0.04 K/mm3 (0.00-0.031); Immature Granulocyte Percent A 0.5 % (0-0.5); Lymphocytes Absolute Auto 1.36 K/mm3 (0.9-3.2); Mean Corpuscular Hemoglobin 31.4 pg (26-34); Mean Corpuscular Volume 98.2 fl (80-100); Mean Platelet Volume 9.7 fl (7.4-10.4); Monocytes Absolute Auto 0.7 K/mm3 (0.1-0.6); Monocytes Percent Auto 9.1 % (2.6-8.5); Neutrophils Absolute Auto 5.3 K/mm3 (1.3-6.7); Neutrophils Percent Auto 69.9 % (45.5-73.1); Platelet Count Result 202 k/mm3 (150-375); Red Blood Count 4.42 M/mm3 (4.2-5.4); Red Cell Distribution Width 12.6 % (11.5-14.5); White Blood Count 7.6 K/mm3 (4.5-10.0)
[2023-04-13 20:55] LABS: Alanine Aminotransferase 17 U/L (6-35); Albumin Level 3.6 g/dL (3.5-5.1); Alkaline Phosphatase 84 U/L (38-126); Anion Gap 1 mmol/L (8-16); Aspartate Amino Transferase 29 U/L (14-36); Bilirubin,Total 0.4 mg/dL (0.2-1.3); Blood Urea Nitrogen 15 mg/dL (7-17); Calcium 8.9 mg/dL (8.4-10.2); Carbon Dioxide 31 mmol/L (22-30); Chloride 108 mmol/L (98-107); Estimated Glomerular Filt Rate > 60; Glucose 97 mg/dL (65-110); Magnesium 2.3 mg/dL (1.6-2.3); Potassium 3.9 mmol/L (3.4-5.0); Sodium 140 mmol/L (137-145)
[2023-04-13] MEDS: MEROPENEM 1 GM/NS 100 ML 1 GM/100 ML BAG IVPB (21:33)
[2023-04-13 22:00] VITALS: BP 114/68; PULSE 63; RESP 20; TEMP 36.4; O2SAT 99
[2023-04-14 05:40] VITALS: BMI 23.3
[2023-04-14 06:00] VITALS: PULSE 59; RESP 20; TEMP 36.4; O2SAT 98
[2023-04-14 06:19] LABS: Basophils Percent Auto 0.5 % (0.2-1.2); Eosinophils Absolute Auto 0.2 K/mm3 (0-0.3); Eosinophils Percent Auto 2.4 % (0-4.4); Hematocrit 42.9 % (37.0-47.0); Hemoglobin 13.5 g/dL (12.0-15.0); Immature Granulocyte Absolute 0.02 K/mm3 (0.00-0.031); Immature Granulocyte Percent A 0.3 % (0-0.5); Lymphocytes Absolute Auto 1.44 K/mm3 (0.9-3.2); Lymphocytes Percent Auto 23.2 % (18.3-44.2); Mean Corpuscular HGB Conc 31.5 g/dl (32-36); Mean Corpuscular Volume 98.6 fl (80-100); Mean Platelet Volume 9.8 fl (7.4-10.4); Monocytes Absolute Auto 0.6 K/mm3 (0.1-0.6); Monocytes Percent Auto 9.8 % (2.6-8.5); Neutrophils Percent Auto 63.8 % (45.5-73.1); Platelet Count Result 202 k/mm3 (150-375); Red Blood Count 4.35 M/mm3 (4.2-5.4); Red Cell Distribution Width 12.4 % (11.5-14.5); White Blood Count 6.2 K/mm3 (4.5-10.0)
[2023-04-14 06:35] LABS: Alanine Aminotransferase 16 U/L (6-35); Albumin Level 3.4 g/dL (3.5-5.1); Alkaline Phosphatase 82 U/L (38-126); Anion Gap 0 mmol/L (8-16); Aspartate Amino Transferase 25 U/L (14-36); Bilirubin,Total 0.5 mg/dL (0.2-1.3); Blood Urea Nitrogen 19 mg/dL (7-17); Calcium 8.8 mg/dL (8.4-10.2); Carbon Dioxide 31 mmol/L (22-30); Chloride 108 mmol/L (98-107); Estimated CRCL calculation 41 ml/min; Estimated Glomerular Filt Rate > 60; Glucose 94 mg/dL (65-110); Magnesium 2.2 mg/dL (1.6-2.3); Sodium 139 mmol/L (137-145)
[2023-04-14 07:47] VITALS: PULSE 66
[2023-04-14] MEDS: MEMANTINE 10 MG TABLET PO ×2 (07:47→17:03)
[2023-04-14] MEDS: SERTRALINE HCL 50 MG TABLET 150 MG PO (07:47)
[2023-04-14] MEDS: ASPIRIN 81 MG ENTERIC TABLET PO (07:47)
[2023-04-14] MEDS: METOPROLOL SUCCINATE EXT REL 25 MG TABCR PO (07:47)
[2023-04-14] MEDS: ENOXAPARIN 40 MG/0.4 ML SYRINGE SUB-Q (07:53)
[2023-04-14 08:00] VITALS: O2SAT 98
[2023-04-14] MEDS: MEROPENEM 1 GM/NS 100 ML 1 GM/100 ML BAG IVPB ×2 (09:49→21:37)
--- NOTE | 2023-04-14 11:59 | PCOTNOTE ---
Received OT evaluation orders. Spoke with pt's who reports that pt is dependent for all ADLs at home. He walks pt with PROJECT GEOPHYSICIST short distances and his family assists in caring for pt. Per , he does not think therapy will be beneficial for pt in the hospital and pt is close to baseline and has severe dementia. Will d/c OT orders per family's wishes.
--- NOTE | 2023-04-14 13:15 | PCPTNOTE ---
Attempted PT evaluation. Per OT, Spoke with pt's who reports that pt is dependent for all ADLs at home. He walks pt with CONE TENDER short distances and his family assists in caring for pt. Per , he does not think therapy will be beneficial for pt in the hospital and pt is close to baseline and has severe dementia. PT orders discharged per family's wishes.
--- NOTE | 2023-04-14 14:35 | PM.IMPN ---
Progress Note: A&P Assessment and Plan (1) UTI (urinary tract infection): Code(s): N39.0 - Urinary tract infection, site not specified Status: Acute Assessment and Plan: Urine culture from 04/11/2023 showing Enterobacter cloacae complex resistant to multiple oral antibiotics Patient is incontinent at baseline, wears depends Patient was on Bactrim, however failed Bactrim in the outpatient setting a few times. Her primary care physician had requested direct admit for IV antibiotics Of note she also had hospital admission on 01/18/2023 with similar complaints and she was on urine dip NM at that time for UTI. Considering her multiple urinary tract infections and multi drug resistance we will go ahead and start her on meropenem 1 g Q 8 hours Patient will need 7-10 days on antibiotic therapy. (2) Altered mental status, unspecified: Qualifiers: Altered mental status type: unspecified Qualified Code(s): R41.82 - Altered mental status, unspecified Code(s): R41.82 - Altered mental status, unspecified Status: Resolved Assessment and Plan: Likely secondary to her urinary tract infection and underlying dementia Currently alert and oriented x1 at best (3) Essential hypertension: Code(s): I10 - Essential (primary) hypertension Status: Chronic Assessment and Plan: Blood pressure ranging 115/67 to 132/78 Continue metoprolol 25 mg daily (4) Weakness: Code(s): R53.1 - Weakness Status: Acute Assessment and Plan: PT and OT ordered (5) Depression: Qualifiers: Depression Type: major depressive disorder Major depression recurrence: unspecified whether recurrent Active/Remission status: in partial remission Qualified Code(s): 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, single episode, in partial remission Code(s): F32.9 - Major depressive disorder, single episode, unspecified Status: Chronic Assessment and Plan: Continue Zoloft (6) Dementia: Qualifiers: Dementia type: unspecified type Dementia behavioral or psychological symptom: with agitation Dementia severity: moderate Qualified Code(s): F03.B11 - Unspecified dementia, moderate, with agitation Code(s): F03.90 - Unspecified dementia, unspecified severity, without behavioral disturbance, psychotic disturbance, mood disturbance, and anxiety Status: Chronic Assessment and Plan: Continue Namenda and Aricept Subjective Date/time seen: 04/14/23 14:35 Interval history: Patient denies any pain. She is alert oriented times 0. When discussing with patient's he states that this is her baseline. He still said that at home he noticed her not eating as much and sleeping more frequently. Due to her frequent UTIs they had gotten a urine specimen. Her primary care ask them to be seen in the ED. Patient has been in out of the hospital with UTIs for quite some time. Patient has highly resistant Enterobacter Colace and has been started on meropenem. Exam Narrative: GENERAL: Comfortable, no acute distress HENMT: moist mucous membranes EYES: EOM intact b/l NECK: no lymphadenopathy RESPIRATORY: clear to auscultation CARDIO: RRR GI: soft, nontender, bowel sounds present SKIN: no rashes EXTREMITIES: no edema, redness or tenderness Objective Data Vital Signs Vital Signs: Vital Signs - 24 hr 04/13/23 18:15 04/13/23 18:37 04/13/23 20:00 Temperature 97.2 F L Pulse Rate 61 Respiratory Rate 14 Blood Pressure 110/52 L Pulse Oximetry 98 Oxygen Delivery Room Air Room Air 04/13/23 22:00 04/14/23 06:00 04/14/23 07:47 Temperature 97.6 F 97.5 F L Pulse Rate 63 59 L 66 Respiratory Rate 20 20 Blood Pressure 114/68 Pulse Oximetry 99 98 Oxygen Delivery 04/14/23 08:00 Temperature Pulse Rate Respiratory Rate Blood Pressure Pulse Oximetry 98 Oxygen Delivery Room Air Intake/Output Intake/Output: Intake
[2023-04-14 16:08] VITALS: BP 107/72; PULSE 60; RESP 18; TEMP 36.4; O2SAT 97
[2023-04-14] MEDS: DONEPEZIL HCL 10 MG TABLET PO (17:03)
[2023-04-14 22:29] VITALS: BP 126/80; PULSE 60; RESP 18; TEMP 36.2; O2SAT 97
[2023-04-15 05:07] LABS: Basophils Percent Auto 0.6 % (0.2-1.2); Eosinophils Absolute Auto 0.1 K/mm3 (0-0.3); Eosinophils Percent Auto 2.4 % (0-4.4); Hematocrit 42.3 % (37.0-47.0); Hemoglobin 13.8 g/dL (12.0-15.0); Immature Granulocyte Absolute 0.03 K/mm3 (0.00-0.031); Immature Granulocyte Percent A 0.6 % (0-0.5); Lymphocytes Absolute Auto 1.46 K/mm3 (0.9-3.2); Lymphocytes Percent Auto 27.2 % (18.3-44.2); Mean Corpuscular HGB Conc 32.6 g/dl (32-36); Mean Corpuscular Hemoglobin 31.4 pg (26-34); Mean Corpuscular Volume 96.4 fl (80-100); Mean Platelet Volume 9.8 fl (7.4-10.4); Monocytes Absolute Auto 0.5 K/mm3 (0.1-0.6); Monocytes Percent Auto 9.9 % (2.6-8.5); Neutrophils Absolute Auto 3.2 K/mm3 (1.3-6.7); Neutrophils Percent Auto 59.3 % (45.5-73.1); Platelet Count Result 212 k/mm3 (150-375); Red Blood Count 4.39 M/mm3 (4.2-5.4); Red Cell Distribution Width 12.7 % (11.5-14.5); White Blood Count 5.4 K/mm3 (4.5-10.0)
[2023-04-15 05:24] LABS: Alanine Aminotransferase 15 U/L (6-35); Albumin Level 3.7 g/dL (3.5-5.1); Alkaline Phosphatase 81 U/L (38-126); Anion Gap 5 mmol/L (8-16); Aspartate Amino Transferase 25 U/L (14-36); Bilirubin,Total 0.7 mg/dL (0.2-1.3); Blood Urea Nitrogen 13 mg/dL (7-17); Carbon Dioxide 25 mmol/L (22-30); Chloride 109 mmol/L (98-107); Estimated CRCL calculation 46 ml/min; Estimated Glomerular Filt Rate > 60; Glucose 101 mg/dL (65-110); Sodium 139 mmol/L (137-145)
[2023-04-15 06:00] VITALS: BP 129/73; PULSE 72; RESP 20; TEMP 36.4; O2SAT 98
[2023-04-15] MEDS: ENOXAPARIN 40 MG/0.4 ML SYRINGE SUB-Q (07:51)
[2023-04-15] MEDS: ASPIRIN 81 MG ENTERIC TABLET PO (07:51)
[2023-04-15 07:52] VITALS: PULSE 70
[2023-04-15] MEDS: METOPROLOL SUCCINATE EXT REL 25 MG TABCR PO (07:52)
[2023-04-15] MEDS: SERTRALINE HCL 50 MG TABLET 150 MG PO (07:52)
[2023-04-15] MEDS: MEMANTINE 10 MG TABLET PO ×2 (07:52→17:12)
[2023-04-15 08:00] VITALS: O2SAT 98
[2023-04-15] MEDS: MEROPENEM 1 GM/NS 100 ML 1 GM/100 ML BAG IVPB ×2 (09:20→21:19)
[2023-04-15] MEDS: ACETAMINOPHEN 325 MG TABLET 650 MG PO (10:41)
--- NOTE | 2023-04-15 12:43 | PM.IMPN ---
Progress Note: A&P Assessment and Plan (1) UTI (urinary tract infection): Code(s): N39.0 - Urinary tract infection, site not specified Status: Acute Assessment and Plan: Urine culture from 04/11/2023 showing Enterobacter cloacae complex resistant to multiple oral antibiotics Patient is incontinent at baseline, wears depends Patient was on Bactrim, however failed Bactrim in the outpatient setting a few times. Her primary care physician had requested direct admit for IV antibiotics Of note she also had hospital admission on 01/18/2023 with similar complaints and she was on urine dip NM at that time for UTI. Considering her multiple urinary tract infections and multi drug resistance we will go ahead and start her on meropenem 1 g Q 8 hours Patient will need 7-10 days on antibiotic therapy. 1st day of antibiotic therapy on 04/13/2023. (2) Altered mental status, unspecified: Qualifiers: Altered mental status type: unspecified Qualified Code(s): R41.82 - Altered mental status, unspecified Code(s): R41.82 - Altered mental status, unspecified Status: Resolved Assessment and Plan: Likely secondary to her urinary tract infection and underlying dementia Currently alert and oriented x1 at best (3) Essential hypertension: Code(s): I10 - Essential (primary) hypertension Status: Chronic Assessment and Plan: Blood pressure ranging 115/67 to 132/78 Continue metoprolol 25 mg daily (4) Weakness: Code(s): R53.1 - Weakness Status: Acute Assessment and Plan: PT and OT ordered (5) Depression: Qualifiers: Active/Remission status: in partial remission Depression Type: major depressive disorder Major depression recurrence: unspecified whether recurrent Qualified Code(s): 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, single episode, in partial remission Code(s): F32.9 - Major depressive disorder, single episode, unspecified Status: Chronic Assessment and Plan: Continue Zoloft (6) Dementia: Qualifiers: Dementia behavioral or psychological symptom: with agitation Dementia severity: moderate Dementia type: unspecified type Qualified Code(s): F03.B11 - Unspecified dementia, moderate, with agitation Code(s): F03.90 - Unspecified dementia, unspecified severity, without behavioral disturbance, psychotic disturbance, mood disturbance, and anxiety Status: Chronic Assessment and Plan: Continue Namenda and Aricept Patient will need a hospital bed because of her advanced end-stage dementia which requires positioning of the body which is not feasible with an ordinary bed. Patient meets criteria for a fixed height hospital bed. Patient requires frequent changes in body position and or has immediate need for change in position. Patient is bed confined. Subjective Date/time seen: 04/15/23 12:43 Interval history: Patient pleasantly confused. Continue IV antibiotic therapy. Exam Narrative: GENERAL: Comfortable, no acute distress HENMT: moist mucous membranes EYES: EOM intact b/l NECK: no lymphadenopathy RESPIRATORY: clear to auscultation CARDIO: RRR GI: soft, nontender, bowel sounds present SKIN: no rashes EXTREMITIES: no edema, redness or tenderness Objective Data Vital Signs Vital Signs: Vital Signs - 24 hr 04/14/23 16:08 04/14/23 22:29 04/14/23 20:00 Temperature 97.5 F L 97.2 F L Pulse Rate 60 60 Respiratory Rate 18 18 Blood Pressure 107/72 126/80 Pulse Oximetry 97 97 Oxygen Delivery Room Air 04/15/23 06:00 04/15/23 07:52 04/15/23 08:00 Temperature 97.6 F Pulse Rate 72 70 Respiratory Rate 20 Blood Pressure 129/73 Pulse Oximetry 98 98 Oxygen Delivery Room Air Intake/Output Intake/Output: Intake & Output 04/12/23 04/13/23 04/14/23 04/15/23 23:59 23:59 23:59 23:59 Intake Total 1120 900 Output Total 1200 900 Balance -80 0 Meds/Result
[2023-04-15 15:13] VITALS: BP 112/61; PULSE 67; RESP 16; TEMP 36.4; O2SAT 98
[2023-04-15] MEDS: DONEPEZIL HCL 10 MG TABLET PO (17:12)
[2023-04-15 20:00] VITALS: PULSE 67; RESP 16; O2SAT 98
[2023-04-15 22:42] VITALS: BP 134/59; PULSE 64; RESP 16; TEMP 36.8; O2SAT 100
[2023-04-16 04:42] VITALS: BP 136/64; PULSE 60; RESP 16; TEMP 36.5; O2SAT 95
[2023-04-16 05:19] LABS: Basophils Percent Auto 0.5 % (0.2-1.2); Eosinophils Absolute Auto 0.2 K/mm3 (0-0.3); Eosinophils Percent Auto 3.6 % (0-4.4); Hematocrit 42.5 % (37.0-47.0); Hemoglobin 13.5 g/dL (12.0-15.0); Immature Granulocyte Absolute 0.03 K/mm3 (0.00-0.031); Immature Granulocyte Percent A 0.5 % (0-0.5); Lymphocytes Absolute Auto 1.64 K/mm3 (0.9-3.2); Lymphocytes Percent Auto 29.1 % (18.3-44.2); Mean Corpuscular HGB Conc 31.8 g/dl (32-36); Mean Corpuscular Hemoglobin 31.5 pg (26-34); Mean Corpuscular Volume 99.3 fl (80-100); Monocytes Absolute Auto 0.7 K/mm3 (0.1-0.6); Monocytes Percent Auto 12.1 % (2.6-8.5); Neutrophils Absolute Auto 3.1 K/mm3 (1.3-6.7); Neutrophils Percent Auto 54.2 % (45.5-73.1); Platelet Count Result 226 k/mm3 (150-375); Red Blood Count 4.28 M/mm3 (4.2-5.4); Red Cell Distribution Width 12.9 % (11.5-14.5); White Blood Count 5.6 K/mm3 (4.5-10.0)
[2023-04-16 05:25] LABS: Alanine Aminotransferase 15 U/L (6-35); Albumin Level 3.4 g/dL (3.5-5.1); Alkaline Phosphatase 78 U/L (38-126); Anion Gap 4 mmol/L (8-16); Aspartate Amino Transferase 24 U/L (14-36); Bilirubin,Total 0.5 mg/dL (0.2-1.3); Blood Urea Nitrogen 21 mg/dL (7-17); Carbon Dioxide 29 mmol/L (22-30); Chloride 106 mmol/L (98-107); Estimated CRCL calculation 41 ml/min; Estimated Glomerular Filt Rate > 60; Glucose 96 mg/dL (65-110); Potassium 3.8 mmol/L (3.4-5.0); Sodium 139 mmol/L (137-145)
[2023-04-16] MEDS: MEMANTINE 10 MG TABLET PO ×2 (10:09→17:27)
[2023-04-16] MEDS: SERTRALINE HCL 50 MG TABLET 150 MG PO (10:09)
[2023-04-16 10:10] VITALS: PULSE 75
[2023-04-16] MEDS: MEROPENEM 1 GM/NS 100 ML 1 GM/100 ML BAG IVPB ×2 (10:10→21:00)
[2023-04-16] MEDS: METOPROLOL SUCCINATE EXT REL 25 MG TABCR PO (10:10)
[2023-04-16] MEDS: ASPIRIN 81 MG ENTERIC TABLET PO (10:10)
[2023-04-16] MEDS: ENOXAPARIN 40 MG/0.4 ML SYRINGE SUB-Q (10:12)
[2023-04-16 13:55] VITALS: BP 113/86; PULSE 65; RESP 16; TEMP 36.6; O2SAT 98
--- NOTE | 2023-04-16 14:48 | PM.IMPN ---
Progress Note: A&P Assessment and Plan (1) UTI (urinary tract infection): Code(s): N39.0 - Urinary tract infection, site not specified Status: Acute Assessment and Plan: Urine culture from 04/11/2023 showing Enterobacter cloacae complex resistant to multiple oral antibiotics Patient is incontinent at baseline, wears depends Patient was on Bactrim, however failed Bactrim in the outpatient setting a few times. Her primary care physician had requested direct admit for IV antibiotics Of note she also had hospital admission on 01/18/2023 with similar complaints and she was on urine dip NM at that time for UTI. Considering her multiple urinary tract infections and multi drug resistance we will go ahead and start her on meropenem 1 g Q 8 hours Patient will need 7-10 days on antibiotic therapy. 1st day of antibiotic therapy on 04/13/2023. (2) Altered mental status, unspecified: Qualifiers: Altered mental status type: unspecified Qualified Code(s): R41.82 - Altered mental status, unspecified Code(s): R41.82 - Altered mental status, unspecified Status: Resolved Assessment and Plan: Likely secondary to her urinary tract infection and underlying dementia Currently alert and oriented x1 at best (3) Essential hypertension: Code(s): I10 - Essential (primary) hypertension Status: Chronic Assessment and Plan: Blood pressure ranging 115/67 to 132/78 Continue metoprolol 25 mg daily (4) Weakness: Code(s): R53.1 - Weakness Status: Acute Assessment and Plan: PT and OT ordered (5) Depression: Qualifiers: Depression Type: major depressive disorder Major depression recurrence: unspecified whether recurrent Active/Remission status: in partial remission Qualified Code(s): 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, single episode, in partial remission Code(s): F32.9 - Major depressive disorder, single episode, unspecified Status: Chronic Assessment and Plan: Continue Zoloft (6) Dementia: Qualifiers: Dementia type: unspecified type Dementia behavioral or psychological symptom: with agitation Dementia severity: moderate Qualified Code(s): F03.B11 - Unspecified dementia, moderate, with agitation Code(s): F03.90 - Unspecified dementia, unspecified severity, without behavioral disturbance, psychotic disturbance, mood disturbance, and anxiety Status: Chronic Assessment and Plan: Continue Namenda and Aricept Patient will need a hospital bed because of her advanced end-stage dementia which requires positioning of the body which is not feasible with an ordinary bed. Patient meets criteria for a fixed height hospital bed. Patient requires frequent changes in body position and or has immediate need for change in position. Patient is bed confined. Subjective Date/time seen: 04/16/23 14:48 Interval history: Continue current antibiotic therapy. Patient pleasantly confused. at bedside. Exam Narrative: GENERAL: Comfortable, no acute distress HENMT: moist mucous membranes EYES: EOM intact b/l NECK: no lymphadenopathy RESPIRATORY: clear to auscultation CARDIO: RRR GI: soft, nontender, bowel sounds present SKIN: no rashes EXTREMITIES: no edema, redness or tenderness Objective Data Vital Signs Vital Signs: Vital Signs - 24 hr 04/15/23 15:13 04/15/23 20:00 04/15/23 22:42 Temperature 97.5 F L 98.2 F Pulse Rate 67 67 64 Respiratory Rate 16 16 16 Blood Pressure 112/61 134/59 L Pulse Oximetry 98 98 100 Oxygen Delivery Room Air 04/16/23 04:42 04/16/23 10:10 04/16/23 13:55 Temperature 97.7 F 97.9 F Pulse Rate 60 75 65 Respiratory Rate 16 16 Blood Pressure 136/64 113/86 Pulse Oximetry 95 98 Oxygen Delivery Intake/Output Intake/Output: Intake & Output 04/13/23 04/14/23 04/15/23 04/16/23 23:59 23:59 23:59 23:59 Intake Total 1120 1000 9
[2023-04-16] MEDS: DONEPEZIL HCL 10 MG TABLET PO (17:28)
[2023-04-16 20:00] VITALS: PULSE 69; RESP 16; O2SAT 97
[2023-04-16 21:00] VITALS: BP 144/90; PULSE 69; RESP 16; TEMP 36.7; O2SAT 97
[2023-04-17 05:05] LABS: Basophils Percent Auto 0.7 % (0.2-1.2); Eosinophils Absolute Auto 0.2 K/mm3 (0-0.3); Hematocrit 43.5 % (37.0-47.0); Hemoglobin 13.8 g/dL (12.0-15.0); Immature Granulocyte Absolute 0.03 K/mm3 (0.00-0.031); Immature Granulocyte Percent A 0.5 % (0-0.5); Lymphocytes Absolute Auto 1.66 K/mm3 (0.9-3.2); Mean Corpuscular HGB Conc 31.7 g/dl (32-36); Mean Corpuscular Hemoglobin 31.5 pg (26-34); Mean Corpuscular Volume 99.3 fl (80-100); Mean Platelet Volume 9.9 fl (7.4-10.4); Monocytes Absolute Auto 0.6 K/mm3 (0.1-0.6); Neutrophils Absolute Auto 3.2 K/mm3 (1.3-6.7); Neutrophils Percent Auto 55.8 % (45.5-73.1); Platelet Count Result 208 k/mm3 (150-375); Red Blood Count 4.38 M/mm3 (4.2-5.4); Red Cell Distribution Width 12.6 % (11.5-14.5); White Blood Count 5.7 K/mm3 (4.5-10.0)
[2023-04-17 05:21] LABS: Alanine Aminotransferase 19 U/L (6-35); Albumin Level 3.6 g/dL (3.5-5.1); Alkaline Phosphatase 81 U/L (38-126); Anion Gap 5 mmol/L (8-16); Aspartate Amino Transferase 34 U/L (14-36); Bilirubin,Total 0.7 mg/dL (0.2-1.3); Blood Urea Nitrogen 21 mg/dL (7-17); Carbon Dioxide 28 mmol/L (22-30); Chloride 106 mmol/L (98-107); Estimated CRCL calculation 46 ml/min; Estimated Glomerular Filt Rate > 60; Glucose 90 mg/dL (65-110); Potassium 4.1 mmol/L (3.4-5.0); Sodium 139 mmol/L (137-145)
[2023-04-17 08:00] VITALS: BP 121/83; PULSE 78; RESP 16; TEMP 36.6; O2SAT 99
[2023-04-17] MEDS: SERTRALINE HCL 50 MG TABLET 150 MG PO (08:28)
[2023-04-17] MEDS: ENOXAPARIN 40 MG/0.4 ML SYRINGE SUB-Q (08:28)
[2023-04-17 08:29] VITALS: PULSE 67
[2023-04-17] MEDS: METOPROLOL SUCCINATE EXT REL 25 MG TABCR PO (08:29)
[2023-04-17] MEDS: MEMANTINE 10 MG TABLET PO ×2 (08:30→17:03)
[2023-04-17] MEDS: ASPIRIN 81 MG ENTERIC TABLET PO (08:30)
[2023-04-17] MEDS: MEROPENEM 1 GM/NS 100 ML 1 GM/100 ML BAG IVPB ×2 (08:59→21:09)
[2023-04-17] MEDS: ACETAMINOPHEN 325 MG TABLET 650 MG PO (13:35)
--- NOTE | 2023-04-17 13:57 | PM.IMPN ---
Progress Note: A&P Assessment and Plan (1) UTI (urinary tract infection): Code(s): N39.0 - Urinary tract infection, site not specified Status: Acute Assessment and Plan: Urine culture from 04/11/2023 showing Enterobacter cloacae complex resistant to multiple oral antibiotics Patient is incontinent at baseline, wears depends Patient was on Bactrim, however failed Bactrim in the outpatient setting a few times. Her primary care physician had requested direct admit for IV antibiotics Of note she also had hospital admission on 01/18/2023 with similar complaints and she was on urine dip NM at that time for UTI. Considering her multiple urinary tract infections and multi drug resistance we will go ahead and start her on meropenem 1 g Q 8 hours Patient will need 7-10 days on antibiotic therapy. 1st day of antibiotic therapy on 04/13/2023. (2) Altered mental status, unspecified: Qualifiers: Altered mental status type: unspecified Qualified Code(s): R41.82 - Altered mental status, unspecified Code(s): R41.82 - Altered mental status, unspecified Status: Resolved Assessment and Plan: Likely secondary to her urinary tract infection and underlying dementia Currently alert and oriented x1 at best (3) Essential hypertension: Code(s): I10 - Essential (primary) hypertension Status: Chronic Assessment and Plan: Blood pressure ranging 115/67 to 132/78 Continue metoprolol 25 mg daily (4) Weakness: Code(s): R53.1 - Weakness Status: Acute Assessment and Plan: PT and OT ordered (5) Depression: Qualifiers: Depression Type: major depressive disorder Major depression recurrence: unspecified whether recurrent Active/Remission status: in partial remission Qualified Code(s): 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, single episode, in partial remission Code(s): F32.9 - Major depressive disorder, single episode, unspecified Status: Chronic Assessment and Plan: Continue Zoloft (6) Dementia: Qualifiers: Dementia type: unspecified type Dementia behavioral or psychological symptom: with agitation Dementia severity: moderate Qualified Code(s): F03.B11 - Unspecified dementia, moderate, with agitation Code(s): F03.90 - Unspecified dementia, unspecified severity, without behavioral disturbance, psychotic disturbance, mood disturbance, and anxiety Status: Chronic Assessment and Plan: Continue Namenda and Aricept Patient will need a hospital bed because of her advanced end-stage dementia which requires positioning of the body which is not feasible with an ordinary bed. Patient meets criteria for a fixed height hospital bed. Patient requires frequent changes in body position and or has immediate need for change in position. Patient is bed confined. Subjective Date/time seen: 04/17/23 13:57 Interval history: Continue current treatment. Patient doing well with at bedside. Exam Narrative: GENERAL: Comfortable, no acute distress HENMT: moist mucous membranes EYES: EOM intact b/l NECK: no lymphadenopathy RESPIRATORY: clear to auscultation CARDIO: RRR GI: soft, nontender, bowel sounds present SKIN: no rashes EXTREMITIES: no edema, redness or tenderness Objective Data Vital Signs Vital Signs: Vital Signs - 24 hr 04/16/23 21:00 04/16/23 20:00 04/17/23 08:29 Temperature 98.0 F Pulse Rate 69 69 67 Respiratory Rate 16 16 Blood Pressure 144/90 H Pulse Oximetry 97 97 Oxygen Delivery Room Air 04/17/23 08:00 Temperature 97.9 F Pulse Rate 78 Respiratory Rate 16 Blood Pressure 121/83 Pulse Oximetry 99 Oxygen Delivery Intake/Output Intake/Output: Intake & Output 04/14/23 04/15/23 04/16/23 04/17/23 23:59 23:59 23:59 23:59 Intake Total 1120 1000 1140 610 Output Total 1200 1100 400 250 Balance -80 -100 740 360 Meds/Results Medications:
[2023-04-17] MEDS: DONEPEZIL HCL 10 MG TABLET PO (17:03)
[2023-04-17 20:15] VITALS: PULSE 68; RESP 12; O2SAT 98
[2023-04-17 20:36] VITALS: BP 117/48; PULSE 68; RESP 12; TEMP 36.2; O2SAT 98
[2023-04-18 05:08] VITALS: BP 118/70; PULSE 68; RESP 12; TEMP 36.2; O2SAT 100
[2023-04-18 05:20] LABS: Basophils Percent Auto 0.8 % (0.2-1.2); Eosinophils Absolute Auto 0.1 K/mm3 (0-0.3); Eosinophils Percent Auto 2.6 % (0-4.4); Hematocrit 45.9 % (37.0-47.0); Hemoglobin 14.9 g/dL (12.0-15.0); Immature Granulocyte Absolute 0.02 K/mm3 (0.00-0.031); Immature Granulocyte Percent A 0.4 % (0-0.5); Lymphocytes Percent Auto 29.7 % (18.3-44.2); Mean Corpuscular HGB Conc 32.5 g/dl (32-36); Mean Corpuscular Hemoglobin 32.1 pg (26-34); Mean Corpuscular Volume 98.9 fl (80-100); Mean Platelet Volume 9.9 fl (7.4-10.4); Monocytes Absolute Auto 0.5 K/mm3 (0.1-0.6); Monocytes Percent Auto 9.1 % (2.6-8.5); Neutrophils Absolute Auto 2.9 K/mm3 (1.3-6.7); Neutrophils Percent Auto 57.4 % (45.5-73.1); Platelet Count Result 233 k/mm3 (150-375); Red Blood Count 4.64 M/mm3 (4.2-5.4); Red Cell Distribution Width 12.7 % (11.5-14.5); White Blood Count 5.1 K/mm3 (4.5-10.0)
[2023-04-18 05:44] LABS: Alanine Aminotransferase 25 U/L (6-35); Albumin Level 3.9 g/dL (3.5-5.1); Alkaline Phosphatase 86 U/L (38-126); Anion Gap 2 mmol/L (8-16); Aspartate Amino Transferase 39 U/L (14-36); Bilirubin,Total 0.6 mg/dL (0.2-1.3); Blood Urea Nitrogen 15 mg/dL (7-17); Calcium 9.3 mg/dL (8.4-10.2); Carbon Dioxide 33 mmol/L (22-30); Chloride 106 mmol/L (98-107); Estimated CRCL calculation 46 ml/min; Estimated Glomerular Filt Rate > 60; Glucose 95 mg/dL (65-110); Potassium 4.4 mmol/L (3.4-5.0); Sodium 141 mmol/L (137-145)
[2023-04-18] MEDS: SERTRALINE HCL 50 MG TABLET 150 MG PO (08:34)
[2023-04-18 08:35] VITALS: PULSE 70
[2023-04-18] MEDS: METOPROLOL SUCCINATE EXT REL 25 MG TABCR PO (08:35)
[2023-04-18] MEDS: ENOXAPARIN 40 MG/0.4 ML SYRINGE SUB-Q (08:35)
[2023-04-18] MEDS: ASPIRIN 81 MG ENTERIC TABLET PO (08:36)
[2023-04-18] MEDS: MEMANTINE 10 MG TABLET PO ×2 (08:36→17:19)
[2023-04-18] MEDS: MEROPENEM 1 GM/NS 100 ML 1 GM/100 ML BAG IVPB ×2 (10:22→20:31)
--- NOTE | 2023-04-18 12:05 | PM.IMPN ---
Progress Note: A&P Assessment and Plan (1) UTI (urinary tract infection): Code(s): N39.0 - Urinary tract infection, site not specified Status: Acute Assessment and Plan: Urine culture from 04/11/2023 showing Enterobacter cloacae complex resistant to multiple oral antibiotics Patient is incontinent at baseline, wears depends Patient was on Bactrim, however failed Bactrim in the outpatient setting a few times. Her primary care physician had requested direct admit for IV antibiotics Of note she also had hospital admission on 01/18/2023 with similar complaints and she was on urine dip NM at that time for UTI. Considering her multiple urinary tract infections and multi drug resistance we will go ahead and start her on meropenem 1 g Q 8 hours Patient will need 7-10 days on antibiotic therapy. 1st day of antibiotic therapy on 04/13/2023. (2) Altered mental status, unspecified: Qualifiers: Altered mental status type: unspecified Qualified Code(s): R41.82 - Altered mental status, unspecified Code(s): R41.82 - Altered mental status, unspecified Status: Resolved Assessment and Plan: Likely secondary to her urinary tract infection and underlying dementia Currently alert and oriented x1 at best (3) Essential hypertension: Code(s): I10 - Essential (primary) hypertension Status: Chronic Assessment and Plan: Blood pressure ranging 115/67 to 132/78 Continue metoprolol 25 mg daily (4) Weakness: Code(s): R53.1 - Weakness Status: Acute Assessment and Plan: PT and OT ordered (5) Depression: Qualifiers: Depression Type: major depressive disorder Major depression recurrence: unspecified whether recurrent Active/Remission status: in partial remission Qualified Code(s): 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, single episode, in partial remission Code(s): F32.9 - Major depressive disorder, single episode, unspecified Status: Chronic Assessment and Plan: Continue Zoloft (6) Dementia: Qualifiers: Dementia type: unspecified type Dementia behavioral or psychological symptom: with agitation Dementia severity: moderate Qualified Code(s): F03.B11 - Unspecified dementia, moderate, with agitation Code(s): F03.90 - Unspecified dementia, unspecified severity, without behavioral disturbance, psychotic disturbance, mood disturbance, and anxiety Status: Chronic Assessment and Plan: Continue Namenda and Aricept Patient will need a hospital bed because of her advanced end-stage dementia which requires positioning of the body which is not feasible with an ordinary bed. Patient meets criteria for a fixed height hospital bed. Patient requires frequent changes in body position and or has immediate need for change in position. Patient is bed confined. Subjective Date/time seen: 04/18/23 12:05 Interval history: Patient continues to do well. Will plan for discharge tomorrow after patient receives her antibiotics. She will be discharged home by ambulance. This was discussed with care coordination and patient's . Patient will be receiving a hospital bed at home. Exam Narrative: GENERAL: Comfortable, no acute distress HENMT: moist mucous membranes EYES: EOM intact b/l NECK: no lymphadenopathy RESPIRATORY: clear to auscultation CARDIO: RRR GI: soft, nontender, bowel sounds present SKIN: no rashes EXTREMITIES: no edema, redness or tenderness Objective Data Vital Signs Vital Signs: Vital Signs - 24 hr 04/17/23 20:36 04/17/23 20:15 04/18/23 05:08 Temperature 97.2 F L 97.2 F L Pulse Rate 68 68 68 Respiratory Rate 12 12 12 Blood Pressure 117/48 L 118/70 Pulse Oximetry 98 98 100 Oxygen Delivery Room Air 04/18/23 08:35 04/18/23 08:30 Temperature Pulse Rate 70 Respiratory Rate Blood Pressure Pulse Oximetry Oxygen Delivery Room Air Intake/Out
[2023-04-18 14:39] VITALS: BP 98/60; PULSE 72; RESP 16; TEMP 36.8; O2SAT 96
[2023-04-18] MEDS: DONEPEZIL HCL 10 MG TABLET PO (17:19)
--- NOTE | 2023-04-18 17:22 | PC.NURSE ---
On 04/18/23, license pending nurse provided care and completed [employer] documentation on this patient. I have reviewed the license pending nurse documentation and agree with the findings.
[2023-04-18 20:35] VITALS: BP 100/66; PULSE 65; RESP 18; TEMP 36.2; O2SAT 99
[2023-04-19 04:01] VITALS: BP 102/68; PULSE 66; RESP 18; TEMP 36.2; O2SAT 93
[2023-04-19] MEDS: MEMANTINE 10 MG TABLET PO ×2 (08:44→17:26)
[2023-04-19] MEDS: ASPIRIN 81 MG ENTERIC TABLET PO (08:44)
[2023-04-19 08:45] VITALS: PULSE 70
[2023-04-19] MEDS: METOPROLOL SUCCINATE EXT REL 25 MG TABCR PO (08:45)
[2023-04-19] MEDS: ENOXAPARIN 40 MG/0.4 ML SYRINGE SUB-Q (08:45)
[2023-04-19] MEDS: MEROPENEM 1 GM/NS 100 ML 1 GM/100 ML BAG IVPB (08:45)
[2023-04-19] MEDS: SERTRALINE HCL 50 MG TABLET 150 MG PO (08:48)
[2023-04-19 14:00] VITALS: BP 101/53; PULSE 75; RESP 18; TEMP 36.4; O2SAT 93
--- NOTE | 2023-04-19 14:18 | PM.DS ---
DS: Admitting Diagnosis Discharge Date 04/19/23 Admitting Diagnosis UTI DS: Discharge Diagnosis Discharge Diagnosis (1) UTI (urinary tract infection): Code(s): N39.0 - Urinary tract infection, site not specified Status: Acute Assessment and Plan: Urine culture from 04/11/2023 showing Enterobacter cloacae complex resistant to multiple oral antibiotics Patient is incontinent at baseline, wears depends Patient will need 7-10 days on antibiotic therapy. 1st day of antibiotic therapy on 04/13/2023 last dose on 04/18/22. (2) Altered mental status, unspecified: Qualifiers: Altered mental status type: unspecified Qualified Code(s): R41.82 - Altered mental status, unspecified Code(s): R41.82 - Altered mental status, unspecified Status: Resolved Assessment and Plan: Likely secondary to her urinary tract infection and underlying dementia Currently alert and oriented x1 at best (3) Essential hypertension: Code(s): I10 - Essential (primary) hypertension Status: Chronic Assessment and Plan: Blood pressure ranging 115/67 to 132/78 Continue metoprolol 25 mg daily (4) Weakness: Code(s): R53.1 - Weakness Status: Acute Assessment and Plan: PT and OT ordered (5) Depression: Qualifiers: Active/Remission status: in partial remission Depression Type: major depressive disorder Major depression recurrence: unspecified whether recurrent Qualified Code(s): 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, single episode, in partial remission Code(s): F32.9 - Major depressive disorder, single episode, unspecified Status: Chronic Assessment and Plan: Continue Zoloft (6) Dementia: Qualifiers: Dementia behavioral or psychological symptom: with agitation Dementia severity: moderate Dementia type: unspecified type Qualified Code(s): F03.B11 - Unspecified dementia, moderate, with agitation Code(s): F03.90 - Unspecified dementia, unspecified severity, without behavioral disturbance, psychotic disturbance, mood disturbance, and anxiety Status: Chronic Assessment and Plan: Continue Namenda and Aricept Patient will need a hospital bed because of her advanced end-stage dementia which requires positioning of the body which is not feasible with an ordinary bed. Patient meets criteria for a fixed height hospital bed. Patient requires frequent changes in body position and or has immediate need for change in position. Patient is bed confined. DS: Summary Hospital Course Hospital Course: This is a 77-year-old female with a significant past medical history of dementia, AFib, depression, hypertension, pacemaker, history of UTIs, insomnia, skin cancer who is a direct admit from her primary care physician where she originally presented on 04/06/2023 presented with confusion, decreased appetite, and weakness.? She was found to have a urinary tract infection and was started on Bactrim according to the medical record.? Patient lives at home with her who has been primarily taking care of her.?Her primary care physician followed up with patient today and states that her urinary tract infection has not subsided and she still has confusion and weakness.? She is being admitted for IV antibiotics as she has failed oral antibiotics and has had multi drug resistant UTIs in the past.? Of note she was admitted on 01/18/23 with a UTI and was on ertapenem during that admission.?Urine culture that came back on 04/11/2023 is showing Enterobacter cloacae complex resistant to multiple oral antibiotic medications. Patient was hospitalized for 7 days of IV antibiotics. Last day of antibiotics on 04/19/2023. She will be discharged back home with her . Time Spent with Patient Time attestation: Total time spent providing and/or coordinating discharge services: Exam Narrative: GENERAL: Comfortable, no acute distre
[2023-04-19] MEDS: ERTAPENEM 1 GM/NS 50 ML 1 GM/50 ML BAG IVPB (17:26)
[2023-04-19] MEDS: DONEPEZIL HCL 10 MG TABLET PO (17:26)
--- NOTE | 2023-04-19 18:02 | PC.NURSE ---
On 04/19/23, license pending nurse provided care and completed [employer] documentation on this patient. I have reviewed the license pending nurse documentation and agree with the findings.
== END 2023-04-19 19:38 | disposition home or self-care (01) | DRG 690 ==
PROVIDERS: Nurse Practitioner Acute Care; Admitting Provider Family Medicine; PCP Family Medicine; Visit Provider Internal Medicine Critical Care Medicine
DX: N39.0 Urinary tract infection, site not specified (principal); Z16.24 Resistance to multiple antibiotics; F03.90 Unspecified dementia, unspecified severity, without behavioral disturbance, psychotic disturbance, mood disturbance, and anxiety; F32.9 Major depressive disorder, single episode, unspecified; I10 Essential (primary) hypertension; I48.91 Unspecified atrial fibrillation; Z85.828 Personal history of other malignant neoplasm of skin; Z95.0 Presence of cardiac pacemaker
CPT/HCPCS: 36415; 76775; 80053; 83735; 85025; A9270; J1335; J1650; J2185

== ENCOUNTER 2023-06-28 10:59 | Emergency (ER) | payer MEDICARE, OTHER, SELFPAY ==
--- NOTE | ~2023-06-28 | CT_ITS ---
EXAMINATION: CT abdomen pelvis w con DATE: 06/28/2023 12:32 INDICATION: Nausea and vomiting. TECHNIQUE: Computed tomography (CT) of the abdomen and pelvis was performed with 100 mL Omnipaque 350 intravenous contrast. Automated exposure control and iterative reconstruction technique were employe d. The dose-length product was 389.59 mGy-cm. COMPARISON: CT abdomen and pelvis 01/09/2019 FINDINGS: The visualized portions of the lung bases demonstrate mild atelectasis. No pleural effusion . The heart size is normal. There are pacer wires in right atrium and right ventricle. No pericardial effusion. The liver, gallbladder, spleen, pancreas, and adrenal glands are normal. There is cortical thinning of the kidneys. There is 11 mm cyst in right kidney. There is diverticulosis of the colon w ithout evidence of diverticulitis. The appendix is normal. There are no dilated loops of bowel. There are no pathologically enlarged lymph nodes. There is no free intraperitoneal fluid. The periuterine veins and ovarian veins are enlarged, consistent with pelvic venous insufficiency. There is moderate thoracic spondylosis and severe lumbar spondylosis. IMPRESSION: 1. No etiology for the patient's symptoms. Reviewed, dictated and finalized at location A.
--- NOTE | ~2023-06-28 | CT_ITS ---
EXAMINATION: CT brain wo con DATE: 06/28/2023 12:32 INDICATION: Altered mental status with confusion, nausea and vomiting TECHNIQUE: Computed tomography (CT) of the head was performed without intravenous contrast. Sagittal and coronal reconstructions were performed. The mA was adjusted according to patient size. Iterative reconstruction technique was employed. The dose-length product was 983.67 mGy-cm. COMPARISON: head CT dated 12/29/2018 FINDINGS: No acute intracranial hemorrhage, acute infarction or abnormal extra axial fluid collection. There is mild scattered white matter hypoattenuation consistent with chronic small vessel ischemic disease. S ymmetric prominence of the sulci, ventricles and subarachnoid spaces overlying the convexities and bi lateral cerebellar hemispheres consistent with moderate to severe age-appropriate diffuse cerebral vo lume loss. Normal variant cavum septum pellucidum et vergae. No mass/mass effect. Mucous retention cy st at the left maxillary sinus. The orbits and mastoid air cells are normal. IMPRESSION: 1. No acute intracranial process. 2. Age-related changes including moderate to severe diffuse volume loss and mild scattered white johnnie er hypoattenuation consistent with chronic small vessel ischemic disease. Reviewed, dictated and finalized at location B. IMPRESSION: 1. No acute intracranial process. 2. Age-related changes including moderate to severe diffuse volume loss and mil d scattered white matter hypoattenuation consistent with chronic small vessel i schemic disease.
[2023-06-28 10:58] VITALS: BP 128/61; PULSE 80; RESP 16; TEMP 36.4; O2SAT 100
[2023-06-28 11:28] LABS: Basophils Percent Auto 0.4 % (0.2-1.2); Eosinophils Absolute Auto 0.1 K/mm3 (0-0.3); Eosinophils Percent Auto 1.3 % (0-4.4); Hematocrit 44.3 % (37.0-47.0); Hemoglobin 14.5 g/dL (12.0-15.0); Immature Granulocyte Absolute 0.03 K/mm3 (0.00-0.031); Immature Granulocyte Percent A 0.4 % (0-0.5); Lymphocytes Absolute Auto 1.51 K/mm3 (0.9-3.2); Lymphocytes Percent Auto 20.3 % (18.3-44.2); Mean Corpuscular HGB Conc 32.7 g/dl (32-36); Mean Corpuscular Hemoglobin 32.3 pg (26-34); Mean Corpuscular Volume 98.7 fl (80-100); Mean Platelet Volume 9.8 fl (7.4-10.4); Monocytes Absolute Auto 0.7 K/mm3 (0.1-0.6); Monocytes Percent Auto 9.7 % (2.6-8.5); Neutrophils Absolute Auto 5.1 K/mm3 (1.3-6.7); Neutrophils Percent Auto 67.9 % (45.5-73.1); Platelet Count Result 222 k/mm3 (150-375); Red Blood Count 4.49 M/mm3 (4.2-5.4); Red Cell Distribution Width 13.3 % (11.5-14.5); White Blood Count 7.4 K/mm3 (4.5-10.0)
[2023-06-28] MEDS: SODIUM CHLORIDE 0.9% IV 1,000 ML 999 ML IV CONT (11:31)
[2023-06-28 11:34] VITALS: BP 120/48; PULSE 68; RESP 16; O2SAT 98
--- NOTE | 2023-06-28 11:34 | ED.FEMALEGU ---
HPI - Female Genitourinary General Chief complaint: Urogenital-Female Stated complaint: uti? Time Seen by Provider: 06/28/23 10:59 Source: patient and family Mode of arrival: EMS Limitations: dementia History of Present Illness HPI Narrative: Patient is a 77-year-old female who presents the ED via EMS with concern for possible UTI. Family at bedside assisted in providing information. Patient has history of dementia, A&O X1 at baseline, unable to provide any information. Family reports patient has been vomiting over the last 2 days, states it has been green in color. States she has been weak and fatigued appearing. They are concerned for UTI. States she has presented similarly in the past with UTIs. Denies known fever. Denies diarrhea, rectal bleeding, melena. Denies cough or cold sx's. Related Data Home Medications Medication Instructions Recorded Confirmed aspirin 81 mg tablet,delayed 81 mg PO DAILY 04/13/23 04/13/23 release metoprolol succinate 25 mg 25 mg PO DAILY 04/13/23 04/13/23 tablet,extended release 24 hr Allergies Allergy/AdvReac Type Severity Reaction Status Date / Time Penicillins Allergy Unknown UNKNOWN Verified 04/06/23 14:06 Review of Systems Review of Systems: ROS unobtainable: Yes unobtainable due to mental status PMFSH Past Medical History Medical History A-fib Body mass index (BMI) 21 to less than 23 Chronic UTI Dementia Depression Dysuria Essential hypertension Fracture of right talus Insomnia Pacemaker Polyuria Sacral decubitus ulcer Skin cancer Skin lesion of right leg SOB (shortness of breath) Urine malodor Wears glasses Surgical History Surgical History History of dilation and curettage History of permanent cardiac pacemaker placement 2019 Hx of tubal ligation Family History Family History Other Arthritis Carcinoma of colon Cerebrovascular accident Family history of coronary artery disease Heart disease Social History Social History Social History: Mrs. Hoffmann is and lives with her in [place]. She designates her , Morgan, as her surrogate decision maker and she wishes to be a full code. She denies alcohol, tobacco, and drug use. Her primary care provider is Dr. Chapito Bridges. Smoking status: Never smoker Second hand tobacco smoke exposure: Yes Alcohol intake: never Substance use: never Substance use type: does not use Do You Feel Safe in your Home?: Yes Lack of Transportation: No Lack of Food: Never True Current Housing: I Have Housing Concerned About Future Housing: No Difficulty Paying Gas/Electric Bills: No Difficulty Paying for Meds: No Currently Unemployed: No Education: High School Diploma/GED Difficulty w/ Childcare or Family Care: No Living arrangements: with family Gender identity (if verbalized by the patient): Female Spiritual care concerns: No Exam Narrative: GENERAL: Elderly, thin, frail, in no acute distress. HEAD: Normocephalic, atraumatic. RESPIRATORY: Airway patent, respirations nonlabored. Clear to auscultation bilaterally, no rales, rhonchi, wheezing. CARDIOVASCULAR: Regular rate and rhythm without murmurs, rubs, or gallops. ABDOMINAL: Soft, no appreciable tenderness throughout abdomen. Nondistended. Normoactive BS. MUSCULOSKELETAL: No gross deformities. SKIN: Warm, dry, normal color. NEURO: A&O X1, unable to follow commands or answer questions. Cranial nerves II-XII grossly intact. No ataxic movements. No appreciable focal deficits. PSYCHIATRIC: Appropriate mood and affect. Normal interaction. Course Vital Signs Vital signs: Vital Signs Temperature 97.6 F 06/28/23 10:58 Pulse Rate 80 06/28/23 10:58 Respir
[2023-06-28 11:37] LABS: Lactic Acid Reflex 1.9 mmol/L (0.7-2.0)
[2023-06-28 11:40] LABS: Lipase 101 U/L (23-300); Magnesium 2.2 mg/dL (1.6-2.3)
[2023-06-28 11:43] LABS: Appearance Urine Clear (Clear); Bacteria Urine 4+ /hpf; Bilirubin Urine Negative (Negative); Blood Urine Negative (Negative); Color Urine Yellow (Yellow); Glucose Urine UA Negative (Negative); Ketones Urine Negative (Negative); Leukocyte Esterase Ur Trace LEU/UL (Negative); Nitrate Urine Positive (Negative); Non Pathogenic Casts 0-2; Protein Urine Negative (Negative); RBC Urine 0-2 /hpf (0-2); Squamous Epithelial Cell Urine None Seen /hpf (Few); Urobilinogen Urine 0.2 mg/dL (<2.0)
[2023-06-28 11:51] LABS: Alanine Aminotransferase 29 U/L (6-35); Albumin Level 4.3 g/dL (3.5-5.1); Alkaline Phosphatase 68 U/L (38-126); Anion Gap 7 mmol/L (4-12); Aspartate Amino Transferase 35 U/L (14-36); Blood Urea Nitrogen 16 mg/dL (7-17); Calcium 9.5 mg/dL (8.4-10.2); Carbon Dioxide 25 mmol/L (22-30); Chloride 107 mmol/L (98-107); Estimated Glomerular Filt Rate > 60; Glucose 95 mg/dL (65-110); Potassium 4.6 mmol/L (3.4-5.0); Sodium 139 mmol/L (137-145)
[2023-06-28 11:58] LABS: Add Urine Microscopic? YES
[2023-06-28 12:15] VITALS: BP 101/60; PULSE 64; RESP 13; O2SAT 100
[2023-06-28 12:31] LABS: Influenza A QL RT-PCR Negative (Negative); Influenza B QL RT-PCR Negative (Negative); RSV RNA, RT-PCR Negative (Negative); SARS-CoV-2 RNA PCR Negative (Negative)
[2023-06-28 12:46] VITALS: BP 116/55; PULSE 68; RESP 17; O2SAT 100
[2023-06-28 13:01] VITALS: BP 100/84; PULSE 74; RESP 20
[2023-06-28 13:31] VITALS: BP 119/75; PULSE 70; RESP 20; O2SAT 97
== END 2023-06-28 13:35 | disposition home or self-care (01) ==
PROVIDERS: Emergency Provider Physician Assistant; PCP Family Medicine
DX: N30.00 Acute cystitis without hematuria (principal); R11.2 Nausea with vomiting, unspecified; F03.90 Unspecified dementia, unspecified severity, without behavioral disturbance, psychotic disturbance, mood disturbance, and anxiety; Z79.82 Long term (current) use of aspirin; I48.91 Unspecified atrial fibrillation; I10 Essential (primary) hypertension; F32.A Depression, unspecified; Z20.822 Contact with and (suspected) exposure to COVID-19
CPT/HCPCS: 36415; 70450; 74177; 80053; 81001; 83605; 83690; 83735; 85025; 87077; 87086; 87088; 87186; 87637; 96360; 99284; J7030; Q9967